=== PATIENT | male | born 1935 | race Caucasian/White ===

== ENCOUNTER 2018-10-06 13:30 | Observation (INO) | payer MEDICARE, OTHER | END 2018-10-08 16:46 | disposition home or self-care (01) | LOC: JER 13:30 → JERBED 20:36 → J4W 23:10 ==

== ENCOUNTER 2018-11-26 19:26 | Emergency (ER) | payer MEDICARE, OTHER | END 2018-11-27 00:26 | disposition home or self-care (01) | LOC: JER 11-27 00:26 | PROC: 0T9B70Z Drainage of Bladder with Drainage Device, Via Natural or Artificial Opening (ICD-10-PCS; principal; 2018-11-26) | DX: R33.8 Other retention of urine (principal); Z85.46 Personal history of malignant neoplasm of prostate; I10 Essential (primary) hypertension; E78.00 Pure hypercholesterolemia, unspecified; E11.9 Type 2 diabetes mellitus without complications; Z79.4 Long term (current) use of insulin; Z95.2 Presence of prosthetic heart valve ==

== ENCOUNTER → 2018-12-21 | Day surgery (SDC) | payer MEDICARE, OTHER ==
[~2018-12-21] MED LIST: ACETAMINOPHEN 325 MG TABLET (FP) PO PRN; LACTATED RINGERS SOLUTION 1,000 ML IV SCH; ONDANSETRON 4 MG/2 ML VIAL IVPUSH PRN; PROPOFOL 20 ML ONE; ceFAZolin SODIUM 1 GM VIAL IVPB ONE; hydrALAZINE HCL 20 MG/ML VIAL IVPUSH ONE
[2018-12-21 09:35] VITALS: BMI 24.0
--- NOTE | 2018-12-21 11:25 | HP ---
DATE OF ADMISSION: 12/21/2018 DATE OF DICTATION: 12/21/2018 HISTORY OF PRESENT ILLNESS: An 83-year-old male with history of prostatism. Patient has had recurrent bouts of urinary tract infection requiring a [place] catheter. He does have history of prostate cancer treated with radiation therapy and his last Lupron was in February of 2018. He underwent coronary artery bypass surgery. He does have history of diabetes and high blood pressure as well as gastroesophageal reflux disease. Patient underwent a cystoscopy in the office. He had greater than 700 mL of residual urine. A [place] catheter was placed at the time. Patient is scheduled to undergo a cystoscopy and a TUR of obstructing prostate and bladder neck tissue. His latest PSA is 0.02. He is on multiple medications including iron, Norvasc, simvastatin, lisinopril, metformin, insulin, aspirin, Nexium, and Flomax. He denies any allergies. PLAN: Cystoscopy, TUR bladder neck. Osito [id number]
--- NOTE | 2018-12-21 12:06 | OP ---
Operative Note - Note: Operative Date: 12/21/18 Pre-Operative Diagnosis: bnc, bph Operation: turp/tuvp/turbn Findings: rec. bph and bnc and trabeculated bladder Post-Operative Diagnosis: Same as Pre-op Surgeon: Tricia Sung Anesthesia: General Specimens Removed: prostate tissue and bladder neck tissua Estimated Blood Loss (mls): 10 Drains & Tubes with Location: 24f 10cc martins Drains, Volume Out (mls): 0 Blood Volume Replaced (mls): 0 Fluid Volume Replaced (mls): 0 Operative Report Dictated: Yes
[2018-12-21] MEDS: hydrALAZINE HCL 20 MG/ML VIAL ONE ×2 (12:40→13:00)
[2018-12-21 13:53] VITALS: BP 144/51; PULSE 81; TEMP 97.6
--- NOTE | 2018-12-21 14:13 | OP ---
DATE OF OPERATION: 12/21/2018 PREOPERATIVE DIAGNOSIS: Urinary retention, bladder neck retraction and recurrent benign prostatic hypertrophy. POSTOPERATIVE DIAGNOSIS: Urinary retention, bladder neck retraction and recurrent benign prostatic hypertrophy. Trabeculated bladder. OPERATIVE PROCEDURE: Cystourethroscopy, transurethral resection of excess prostate tissue and transurethral vaporization of bladder neck. ANESTHESIA: General. DESCRIPTION OF PROCEDURE: Under above stated anesthesia, patient was prepped and draped in the usual sterile manner. He was placed in the dorsal lithotomy position. Cystoscopy revealed a normal anterior urethra. Prostatic urethra revealed excess prostate tissue over the right lobe, stented into the bladder neck. Using a bipolar resectoscope, the tissue was resected. Hemostasis was secured with electrocoagulation. Prostate chips were evacuated with an PERORA evacuator. A bladder neck appeared to be contracted, therefore using a plasma button, a bladder neck was vaporized from the 6 o'clock position to the 12 o'clock position on the right side, and same thing on the left side. No active bleeding was noted. The bladder was emptied. Scope was removed. A 24 Upper Sorbian [place] was placed. This was connected to a leg bag. The patient tolerated the procedure well. He returned to the recovery room in good condition. Osito [id number]
--- NOTE | 2018-12-24 17:56 | PATH ---
Surgical Pathology Report Patient Name: THOMAS FRANKLIN [facility]. Rec. #: [id number] /Age/Gender: 1935 (Age: 83) / M Account: [id number] Location: [facility] SURGICAL Taken: 12/21/2018 Received: 12/21/2018 Reported: 12/24/2018 Physicians: Tricia Sung M.D. Specimen(s) Received PROSTATE TISSUE Clinical History Urethral stricture Final Diagnosis PROSTATE TISSUE, TRANSURETHRAL RESECTION OF BLADDER NECK AND PROSTATE: BENIGN PROSTATIC TISSUE WITH MARKED ACUTE AND CHRONIC INFLAMMATION, GRANULATION TISSUE FORMATION, AND STROMAL HYPERPLASIA. UROTHELAL MUCOSA WITH CYSTITIS CYSTICA AND CYSTITIS GLANDULARIS. Electronically Signed Alley Mota M.D. Gross Description Received in formalin labeled "prostate tissue" is a 1 g, 3 x 2 x 0.5 cm aggregate of rivera, firm to rubbery portions of tissue, consistent with prostate chips. Auto Porter portions are submitted in 1 cassette. MLSZ/12/21/2018 sansiobhan/12/21/2018
== END | disposition home or self-care (01) ==
LOC: JASU-SURG 08:56
PROVIDERS: ATTEND Urology
PROC: 0TBC8ZZ Excision of Bladder Neck, Via Natural or Artificial Opening Endoscopic (ICD-10-PCS; principal; 2018-12-21 10:00)
DX: R33.9 Retention of urine, unspecified (principal); N32.0 Bladder-neck obstruction; N40.0 Benign prostatic hyperplasia without lower urinary tract symptoms; I10 Essential (primary) hypertension; E11.9 Type 2 diabetes mellitus without complications; E78.5 Hyperlipidemia, unspecified; I25.10 Atherosclerotic heart disease of native coronary artery without angina pectoris; Z79.84 Long term (current) use of oral hypoglycemic drugs; Z85.46 Personal history of malignant neoplasm of prostate; Z92.3 Personal history of irradiation
CPT/HCPCS: 82962; 88305-TC; 94760

== ENCOUNTER 2019-02-25 06:06 | Day surgery (SDC) | payer MEDICARE, OTHER ==
[2019-02-22 15:17] VITALS: BMI 23.3
[2019-02-25] MEDS ORDERED: ONDANSETRON 4 MG/2 ML VIAL IVPUSH PRN (10:13)
[2019-02-25] MEDS ORDERED: LACTATED RINGERS SOLUTION 1,000 ML IV SCH (10:15)
[2019-02-25] MEDS ORDERED: LIDOCAINE HCL 1%, 10 MG/ML (20ML VIAL) ONE (10:33)
[2019-02-25] MEDS ORDERED: BUPIVACAINE HCL/PF 0.5% (5 MG/ML) 30 ML VIAL IJ ONE (10:33)
[2019-02-25] MEDS ORDERED: PROPOFOL 20 ML ONE (10:52)
[2019-02-25] MEDS ORDERED: LIDOCAINE HCL 1%, 10 MG/ML (20ML VIAL) INF ONE (11:15)
[2019-02-25] MEDS ORDERED: BENZOIN TINCTURE SWABSTICK TP ONE (11:27)
--- NOTE | 2019-02-25 11:48 | OP ---
Operative Note - Note: Operative Date: 02/25/19 Pre-Operative Diagnosis: recurrent urethral stricture and urinary retention Operation: cystoscopy/open suprapubic tube placement Findings: bulbous urethral stricture Post-Operative Diagnosis: Same as Pre-op Surgeon: Gerber Dunham Anesthesia: General Estimated Blood Loss (mls): 5 Drains & Tubes with Location: suprapubic tube
[2019-02-25 12:49] VITALS: TEMP 97.4
[2019-02-25] MEDS ORDERED: ACETAMINOPHEN 325 MG TABLET (FP) ONE (13:35)
[2019-02-25] MEDS ORDERED: ACETAMINOPHEN 325 MG TABLET (FP) PO ONE (13:39)
[2019-02-25 14:27] VITALS: BP 131/49; PULSE 72
--- NOTE | 2019-02-25 17:44 | OP ---
DATE OF OPERATION: 02/25/2019 PREOPERATIVE DIAGNOSIS: Recurrent urethral stricture causing bladder outlet obstruction with urinary retention. POSTOPERATIVE DIAGNOSIS: Recurrent urethral stricture causing bladder outlet obstruction with urinary retention. PROCEDURE: Cystoscopy and open suprapubic tube placement. ATTENDING: Raegan Juan MD ANESTHESIA: General. DESCRIPTION OF PROCEDURE: Patient was brought in the operating room, placed in a supine position on the operating room table. General anesthesia and preoperative antibiotics were then administered. Cystoscopy was performed and showed a high-grade, bulbous urethral stricture. At this point, a 14-Jordanian catheter was placed into the bladder. The bladder was inflated with 400 mL of fluid. With the bladder palpable, incision was made in the midline 2 cm above the pubic bone. The incision was taken down to the level of the external sheath. An incision was made at the external sheath, and with the blunt and sharp dissection, the bladder was noted. Under direct visualization, incision was made into the bladder and a suprapubic tube placed. The suprapubic tube was then sutured in place with a 0 silk stitch. A 2-layer closure of the skin was performed. There were no complications noted. Patient tolerated the procedure very well. Catheter in the penis was removed at the end of the case. DISPOSITION: To the recovery room. RAEGAN JUAN M.D. [id number]
== END 2019-02-25 14:25 | disposition home or self-care (01) ==
LOC: JASU-SURG 06:06
PROVIDERS: ATTEND Urology
PROC: 0TJB8ZZ Inspection of Bladder, Via Natural or Artificial Opening Endoscopic (ICD-10-PCS; 2019-02-25)
PROC: 0T9B0ZZ Drainage of Bladder, Open Approach (ICD-10-PCS; principal; 2019-02-25 08:00)
DX: N35.819 Other urethral stricture, male, unspecified site (principal); R33.8 Other retention of urine
CPT/HCPCS: 82962; 94760

== ENCOUNTER 2019-10-05 14:01 | Emergency (ER) | payer MEDICARE, OTHER ==
[2019-10-05 14:09] VITALS: TEMP 98.4; BMI 24.3
[2019-10-05 15:28] LABS: BASO % 1.2 % (0-2.0); EOS % 1.5 % (0-4.5); HEMATOCRIT 37.2 % (35.4-49); HEMOGLOBIN 12.6 GM/dL (11.7-16.9); LYMPH % 20.3 % (8-40); MCH 29.8 pg (25.7-33.7); MCHC 33.8 g/dl (32.0-35.9); MEAN CELL VOLUME 88.1 fl (80-96); MEAN PLT VOLUME 8.1 fl (7.5-11.1); PLATELET COUNT 265 K/MM3 (134-434); RBC 4.23 M/mm3 (4.00-5.60); RDW 14.4 % (11.9-15.9); WHITE BLOOD COUNT 8.3 K/mm3 (4.0-10.0)
[2019-10-05 15:36] LABS: INR 0.97 (0.83-1.09); PROTHROMBIN TIME (PATIENT) 11.5 SEC (9.7-13.0)
[2019-10-05 15:38] LABS: ACTIVATED PTT 34.6 SECONDS (25.2-36.5)
[2019-10-05 15:43] LABS: EPI CELLS 4 /uL (0-25.1); HYALINE CASTS 2 /uL (0-3.1); URINE APPEARANCE CLOUDY; URINE BILIRUBIN NEGATIVE (NEGATIVE); URINE COLOR YELLOW; URINE GLUCOSE (UA) 3+ (NEGATIVE); URINE KETONE NEGATIVE (NEGATIVE); URINE LEUK ESTERASE 1+ (NEGATIVE); URINE NITRITE POSITIVE (NEGATIVE); URINE PROTEIN 2+ (NEGATIVE); URINE RBC 11 /uL (0-23.9); URINE UROBILINOGEN 0.2 mg/dL (0.2-1.0); URINE WBC 186 /uL (0-25.8)
--- NOTE | 2019-10-05 15:44 | PDOC ---
History of Present Illness - General Chief Complaint: Blood Pressure Problem Stated Complaint: HYPERTENSION Time Seen by Provider: 10/05/19 14:48 - History of Present Illness Initial Comments: The pt is an 84M w/ a history of Prostate Ca s/p TURP, DM, HTN who presents for evaluation of HTN and headache. The pt reports that his pressures have been running higher at home ranging from SBP 160s-180s. Today the pt reports having a generalized, gradual onset CONWAY with an associated SBP 190s. Pt denies fevers/chills, vision changes, chest pain, trouble breathing, abdominal pain, diarrhea, blood in his urine/stool. The pt has had several changes to his BP meds over the last several months and has been compliant with his current medications. 10/05/19 15:45 Past History - Medical History Allergies/Adverse Reactions: Allergies Allergy/AdvReac Type Severity Reaction Status Date / Time No Known Allergies Allergy Unverified 10/05/19 14:04 Home Medications: Ambulatory Orders Amlodipine Besylate [Norvasc -] 10 mg PO DAILY 10/06/18 Ferrous Sulfate 325 mg PO ONCE 10/06/18 Insulin Glargine,Hum.rec.anlog [Lantus] 30 unit SQ HS 10/06/18 Lisinopril 40 mg PO DAILY 10/06/18 Simvastatin 20 mg PO DAILY 10/06/18 metFORMIN HCL [Metformin HCl] 500 mg PO BID 10/06/18 Aspirin [Aspirin EC] 81 mg PO DAILY 10/07/18 Omeprazole/Sodium Bicarbonate [Omeprazole-Bicarb 40-1,100 Cap] 1 tab PO HS 10/07/18 Finasteride 5 mg PO DAILY 10/05/19 Hydrochlorothiazide [Hctz -] 25 mg PO DAILY 10/05/19 Anemia: No Asthma: No Cancer: Yes (h/o Prostate Ca) Cardiac Disorders: Yes (AVR) CVA: No COPD: No CHF: No Dementia: No Diabetes: Yes GI Disorders: Yes (STOMACH POLYPS) Disorders: No HTN: Yes Hypercholesterolemia: Yes Liver Disease: Yes (stomach polyps) Seizures: No Thyroid Disease: No - Surgical History Abdominal Surgery: No Cardiac Surgery: Yes (Heart valve Replacement 11 years ago) Lung Surgery: No Neurologic Surgery: No - Psycho-Social/Smoking History Smoking History: Never smoked Have you smoked in the past 12 months: No - Substance Abuse Hx (Audit-C & DAST Scrn) How often the patient has a drink containing alcohol: Never Score: In Men: 4 or > Positive; In Women: 3 or > Positive: 0 Screen Result (Pos requires Nsg. Audit-10AR): Negative In the last yr the pt used illegal drug/Rx for NonMed reason: No Score: Yes response is considered Positive: 0 Screen Result (Positive result requires Nsg. DAST-10): Negative Review of Systems - Review of Systems Able to Perform ROS?: Yes Comments:: GENERAL/CONSTITUTIONAL: No fever or chills. HEAD, EYES, EARS, NOSE AND THROAT: No change in vision. No change in hearing. No sore throat CARDIOVASCULAR: No chest pain or shortness of breath RESPIRATORY: Denies cough, hemoptysis GASTROINTESTINAL: No nausea, vomiting, diarrhea or constipation GENITOURINARY: Suprapubic catheter in place MUSCULOSKELETAL: No joint or muscle swelling or pain. No neck or back pain SKIN: No rash NEUROLOGIC: No vertigo, loss of consciousness, or change in strength/sensation ENDOCRINE: No increased thirst. No abnormal weight change HEMATOLOGIC/LYMPHATIC: No anemia, easy bleeding, or history of blood clots ALLERGIC/IMMUNOLOGIC: No hives or skin allergy 10/05/19 15:42 Is the patient limited Par[place] proficient: No *Physical Exam - Vital Signs Last Vital Signs Temp Pulse Resp BP Pulse Ox 98.4 F 75 18 184/46 H 97 10/05/19 14:04 10/05/19 14:04 10/05/19 14:04 10/05/19 14:04 10/05/19 14:04 - Physical Exam GENERAL: Awake, alert, and oriented to person/place/time, in no acute distress HEAD: No signs of trauma, normocephalic, atraumatic EYES: PERRLA, EOMI, sclera anicteric, conjunctiva clear ENT: Hearing grossly normal, nares patent, oropharynx clear without exudates. Moist mucosa LUNGS: No distress, speaks in full sentences, clear to auscultation bilaterally HEART: Regular rate and rhythm, normal S1 and S2, no murmurs appreciated, peripheral pulses normal and equal bilaterally ABDOMEN: Soft, nontender, suprapubic catheter in place w/o surrounding erythema, normoactive bowel sounds. No guarding, no rebound EXTREMITIES: Normal inspection, Normal range of motion, no edema. No clubbing or cyanosis NEUROLOGICAL: Cranial nerves II through XII grossly intact. Normal speech, no focal sensorimotor deficits SKIN: Warm, Dry 10/05/19 15:43 ED Treatment Course - LABORATORY CBC & Chemistry Diagram: 10/05/19 15:18 10/05/19 15:18 - ADDITIONAL ORDERS Additional order review: Laboratory Results 10/05/19 15:18 PT with INR 11.50 INR 0.97 PTT (Actin FS) 34.6 10/05/19 15:18 RBC 4.23 MCV 88.1 MCHC 33.8 RDW 14.4 MPV 8.1 Neutrophils % 69.0 Lymphocytes % 20.3 D Monocytes % 8.0 Eosinophils % 1.5 Basophils % 1.2 Medical Decision Making - Medical Decision Making The pt is an 84M w/ a history of Prostate Ca s/p TURP, DM, HTN who presents for evaluation of HTN (SBP 190 at home) and a generalized, gradual onset headache Ddx: HTN, hypertensive emergency; CONWAY (tension, migraine, hypertensive); not likely ACS; pt w/o respiratory or infectious symptoms. ED Course CMP, CBC, Trop I, UA, UCx CT head, CXR ECG No leukocytosis No anemia Lytes overall unremarkable No MIGNON LFTs unremarkable Trop I neg UA likely colonized from suprapubic catheter 10/05/19 15:54 Pt states CONWAY is resolved and is asymptomatic Repeat BP 160s/30s CT head w/o acute pathology CXR w/o PNA, PNX, effusion ECG w/ sinus arrhythmia, incomplete RBBB, right axis deviation; no acute ischemic changes; HR 60; QTc 426 Plan for D/C w/ PCP f/u Call placed to Dr. Sung, message left for return call Pt instructed to call PCP office Monday to discuss his BP regimen and try to move his appointment up. Discharge instructions and return precautions given Patient in agreement and verbalized understanding Dispo: Home 10/05/19 16:58 Discharge - Discharge Information Problems reviewed: Yes Clinical Impression/Diagnosis: Hypertension Qualifiers: Hypertension type: essential hypertension Qualified Code(s): I10 - Essential (primary) hypertension Headache Qualifiers: Headache type: unspecified Headache chronicity pattern: acute headache Intractability: not intractable Qualified Code(s): R51 - Headache Condition: Stable Disposition: HOME - Admission No - Follow up/Referral Referrals: Mack Sung MD [Primary Care Provider] - - Patient Discharge Instructions Patient Printed Discharge Instructions: DI for High Blood Pressure Additional Instructions: You were seen in the Emergency Department for evaluation of high blood pressure. Your blood pressure here was within an acceptable range. Your labs and imaging were unremarkable. Review the handouts provided at discharge. Call your doctor's office on Monday to try and schedule an earlier appointment or try to discuss your medications with the doctor. Tell them that you were seen in the Emergency Department for this problem this weekend. Return to the Emergency Department if you develop fevers, chest pain, trouble breathing, vision changes, changes in sensation/strength, headache, nausea/vomi ting, worsening symptoms, or any new/concerning symptoms. Lo vieron en el departamento de emergencias para evaluar la presin arterial shantell. Plasencia presin arterial aqu estaba dentro de un rango aceptable. [place] laboratorios e imgenes no fueron notables. Revise los folletos provistos al shantell. Llame al consultorio de plasencia mdico el para tratar de programar donna antony ms temprana o tratar de discutir [place] medicamentos con el mdico. Dgales que lo vieron en el Departamento de Emergencias por marcelo problema marcelo fin de semana. Regrese al Departamento de Emergencias si desarrolla fiebre, dolor en el pecho, dificultad para respirar, cambios en la visin, cambios en la sensacin / fuerza, dolor de taj, nuseas / vmitos, empeoramiento de los sntomas o cualquier sntoma nuevo o preocupante. Print Language: AFGHAN - Post Discharge Activity
[2019-10-05 15:52] LABS: ALBUMIN 3.3 g/dl (3.4-5.0); ALK PHOS 101 U/L (45-117); ANION GAP 7 MMOL/L (8-16); BILIRUBIN,TOTAL 0.4 mg/dL (0.2-1); BLOOD UREA NITROGEN 20.8 mg/dL (7-18); CALCIUM 8.7 mg/dL (8.5-10.1); CHLORIDE 100 mmol/L (98-107); CO2 26 mmol/L (21-32); CREATININE 1.1 mg/dL (0.55-1.3); GLUCOSE,RANDOM 273 mg/dL (74-106); MAGNESIUM 2.3 mg/dL (1.8-2.4); POTASSIUM 4.6 mmol/L (3.5-5.1); SGOT/AST 25 U/L (15-37); SGPT/ALT 15 U/L (13-61); SODIUM 133 mmol/L (136-145); TOT PROT 7.6 g/dl (6.4-8.2)
--- NOTE | 2019-10-05 16:15 | PDOC ---
Documentation entered by Mallika Ponce SCRIBE, acting as scribe for Tali Shook MD. Tali Shook MD: This documentation has been prepared by the Kris augustine Xhesika, SCRIBE, under my direction and personally reviewed by me in its entirety. I confirm that the documentation accurately reflects all work, treatment, procedures, and medical decision making performed by me. 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 Pt states his BP has been in the 160's systolic for the past serval weeks, tried to get an appointment with Dr. Sung, was unable to until a month from now. Pt was taken off of hydrochlorothiazide last year and it was re-substituted again 2 months ago. Pt states his BP was 190 systolic today associated with a headache, prompting his arrival to the ED. Allergies: NKDA PCP: Dr. Mack Sung Cards: Elle Marmolejo Neph: Dr. Manrique - Physicial Exam PE: 10/05/19 16:12 awake alert lungs clear bilat heart systolic murmur , 2/6, no r/g abd soft nt nd ext wwp. Nuero: strength all four ext CN II - XiI intact. skin warm and dry. - Medical Decision Making 10/05/19 16:13 84 yo male with htn, now CONWAY. plan repeat bp 160/30. ct head r/o ICH or other pathology, ro end organ damage cbc cmp bnp trop ekg. will likely dc if al normal. will attempt to call dr Sung or close followup. 10/05/19 17:21 pt bp much improved. ct head negative. labs normal. ekg normal. d/w pt will follow up with dr Sung. called dr sung . left message. Heart Score/ECG Review #1 General ECG Interpretation: Sinus Rhythm, Normal Rate (60), Normal Intervals, No acute ischemic changes Discharge - Discharge Information Problems reviewed: Yes Clinical Impression/Diagnosis: Hypertension Qualifiers: Hypertension type: essential hypertension Qualified Code(s): I10 - Essential (primary) hypertension Headache Qualifiers: Headache type: unspecified Headache chronicity pattern: acute headache Intractability: not intractable Qualified Code(s): R51 - Headache Condition: Stable Disposition: HOME - Admission No - Follow up/Referral Referrals: Mack Sung MD [Primary Care Provider] - - Patient Discharge Instructions Patient Printed Discharge Instructions: DI for High Blood Pressure Additional Instructions: You were seen in the Emergency Department for evaluation of high blood pressure. Your blood pressure here was within an acceptable range. Your labs and imaging were unremarkable. Review the handouts provided at discharge. Call your doctor's office on Monday to try and schedule an earlier appointment or try to discuss your medications with the doctor. Tell them that you were seen in the Emergency Department for this problem this weekend. Return to the Emergency Department if you develop fevers, chest pain, trouble breathing, vision changes, changes in sensation/strength, headache, nausea/vomiting, worsening symptoms, or any new/concerning symptoms. Lo vieron en el departamento de emergencias para evaluar la presin arterial shantell. Porter presin arterial aqu estaba dentro de un rango aceptable. [place] laboratorios e imgenes no fueron notables. Revise los folletos provistos al shantell. Llame al consultorio de porter mdico el para tratar de programar donna antony ms temprana o tratar de discutir [place] medicamentos con el mdico. Dgales que lo vieron en el Departamento de Emergencias por marcelo problema marcelo fin de semana. Regrese al Departamento de Emergencias si desarrolla fiebre, dolor en el pecho, dificultad para respirar, cambios en la visin, cambios en la sensacin / fuerza, dolor de taj, nuseas / vmitos, empeoramiento de los sntomas o cualquier sntoma nuevo o preocupante. Print Language: MAORI - Post Discharge Activity
[2019-10-05 16:31] VITALS: BP 160/43
[2019-10-05 16:41] VITALS: PULSE 60
--- NOTE | 2019-10-06 17:25 | EKG ---
Test Reason : Blood Pressure : / mmHG Vent. Rate : 060 BPM Atrial Rate : 060 BPM P-R Int : 218 ms QRS Dur : 114 ms QT Int : 426 ms P-R-T Axes : 034 -19 045 degrees QTc Int : 426 ms SINUS RHYTHM WITH MARKED SINUS ARRHYTHMIA WITH 1ST DEGREE A-V BLOCK INCOMPLETE RIGHT BUNDLE BRANCH BLOCK BORDERLINE ECG WHEN COMPARED WITH ECG OF 07-OCT-2018 01:46, PREMATURE VENTRICULAR COMPLEXES ARE NO LONGER PRESENT Confirmed by MD Antolin, Gaurav ([id number]) on 10/06/2019 5:25:42 PM Referred By: Confirmed By:Gaurav Dangelo MD
== END 2019-10-05 17:25 | disposition home or self-care (01) ==
LOC: JER 14:01
DX: R51 Headache (principal); I10 Essential (primary) hypertension
CPT/HCPCS: 36415; 70450-TC; 71046-TC-FY; 80053; 81003; 82550; 83735; 84484; 85025; 85610; 85730; 93005; 93010; 99285-25

== ENCOUNTER 2020-01-27 11:19 | Emergency (ER) | payer MEDICARE, OTHER ==
[2020-01-27 12:06] VITALS: BP 188/48; PULSE 66; TEMP 98.6; BMI 26.6
== END 2020-01-27 15:40 | disposition left against medical advice (07) ==
LOC: JER 11:19
DX: R31.9 Hematuria, unspecified (principal)
CPT/HCPCS: 99284-25

== ENCOUNTER 2020-09-04 14:15 | Inpatient (IN) | payer MEDICARE, OTHER ==
[2020-09-04 15:48] LABS: BASO % 1.1 % (0-2.0); EOS % 2.5 % (0-4.5); HEMATOCRIT 30.9 % (35.4-49); HEMOGLOBIN 10.4 GM/dL (11.7-16.9); MCH 28.9 pg (25.7-33.7); MCHC 33.6 g/dl (32.0-35.9); MEAN CELL VOLUME 86.2 fl (80-96); MEAN PLT VOLUME 7.8 fl (7.5-11.1); MONO % 9.3 % (3.8-10.2); NEUT % 64.1 % (42.8-82.8); PLATELET COUNT 270 10^3/uL (134-434); RBC 3.58 M/mm3 (4.00-5.60); WHITE BLOOD COUNT 6.9 K/mm3 (4.0-10.0)
[2020-09-04 16:06] LABS: CHLORIDE 104 mmol/L (98-107); SODIUM 136 mmol/L (136-145)
[2020-09-04 16:08] LABS: CALCIUM 8.6 mg/dL (8.5-10.1)
[2020-09-04 16:09] LABS: ALBUMIN 2.9 g/dl (3.4-5.0); ANION GAP 5 MMOL/L (8-16); BLOOD UREA NITROGEN 20.4 mg/dL (7-18); CO2 26 mmol/L (21-32); GLUCOSE,RANDOM 112 mg/dL (74-106); MAGNESIUM 2.2 mg/dL (1.8-2.4)
[2020-09-04 16:13] LABS: SGOT/AST 14 U/L (15-37); SGPT/ALT 18 U/L (13-61)
[2020-09-04 16:14] LABS: BILIRUBIN,TOTAL 0.4 mg/dL (0.2-1); TOT PROT 6.5 g/dl (6.4-8.2)
[2020-09-04 16:15] LABS: ALK PHOS 88 U/L (45-117)
[2020-09-04 16:18] LABS: N-TERMINAL BNP 5409.7 pg/ml (5-450)
[2020-09-04] MEDS ORDERED: amLODIPine BESYLATE 5 MG TABLET (FP) PO ONE (16:21)
[2020-09-04] MEDS ORDERED: LISINOPRIL 20 MG TABLET PO ONE (16:21)
[2020-09-04] MEDS ORDERED: hydrALAZINE HCL 25 MG TABLET (FP) PO ONE (16:21)
[2020-09-04] MEDS ORDERED: LISINOPRIL 20 MG TABLET ONE (16:24)
[2020-09-04] MEDS ORDERED: amLODIPine BESYLATE 5 MG TABLET (FP) ONE (16:24)
[2020-09-04] MEDS ORDERED: hydrALAZINE HCL 25 MG TABLET (FP) ONE ×2 (16:24→22:00)
[2020-09-04] MEDS ORDERED: CARVEDILOL 12.5 MG TABLET (FP) PO ONE (20:00)
[2020-09-04] MEDS ORDERED: FUROSEMIDE 40 MG/4 ML INJECTABLE VIAL IVPUSH ONE (20:01)
[2020-09-04] MEDS ORDERED: FUROSEMIDE 40 MG/4 ML INJECTABLE VIAL ONE (20:19)
[2020-09-04] MEDS: FUROSEMIDE 40 MG/4 ML INJECTABLE VIAL IVPUSH SCH (20:27)
[2020-09-04 21:06] LABS: EPI CELLS >36 /uL (0-25.1); HYALINE CASTS 2 /uL (0-3.1); URINE APPEARANCE CLEAR; URINE BACTERIA >9,000 /uL (0-1359); URINE BILIRUBIN NEGATIVE (NEGATIVE); URINE COLOR YELLOW; URINE GLUCOSE (UA) NEGATIVE (NEGATIVE); URINE KETONE NEGATIVE (NEGATIVE); URINE LEUK ESTERASE 1+ (NEGATIVE); URINE NITRITE NEGATIVE (NEGATIVE); URINE PROTEIN 3+ (NEGATIVE); URINE RBC 9 /uL (0-23.9); URINE UROBILINOGEN 0.2 mg/dL (0.2-1.0); URINE WBC 76 /uL (0-25.8)
[2020-09-04] MEDS ORDERED: CARVEDILOL 12.5 MG TABLET (FP) ONE (21:27)
[2020-09-04] MEDS ORDERED: ATORVASTATIN CA 10 MG TABLET (FP) ONE (22:01)
[2020-09-04] MEDS: hydrALAZINE HCL 25 MG TABLET (FP) PO SCH (22:06)
[2020-09-04] MEDS: INSULIN SLIDING SCALE (NOVOLOG) 1 VIAL SQ SCH (22:06)
[2020-09-04] MEDS: ATORVASTATIN CA 10 MG TABLET (FP) PO SCH (22:06)
[2020-09-05] MEDS: CARVEDILOL 12.5 MG TABLET (FP) PO SCH ×3 (04:36→22:58)
[2020-09-05 07:11] LABS: HEMATOCRIT 31.3 % (35.4-49); HEMOGLOBIN 10.4 GM/dL (11.7-16.9); MCH 28.6 pg (25.7-33.7); MCHC 33.2 g/dl (32.0-35.9); MEAN CELL VOLUME 86.3 fl (80-96); MEAN PLT VOLUME 8.2 fl (7.5-11.1); PLATELET COUNT 264 10^3/uL (134-434); RBC 3.63 M/mm3 (4.00-5.60); RDW 14.7 % (11.9-15.9); WHITE BLOOD COUNT 6.5 K/mm3 (4.0-10.0)
[2020-09-05 07:25] LABS: ALBUMIN 2.7 g/dl (3.4-5.0); BLOOD UREA NITROGEN 21.2 mg/dL (7-18); CALCIUM 8.6 mg/dL (8.5-10.1)
[2020-09-05 07:26] LABS: MAGNESIUM 1.9 mg/dL (1.8-2.4)
[2020-09-05 07:29] LABS: CREATININE 0.9 mg/dL (0.55-1.3)
[2020-09-05 07:30] LABS: BILIRUBIN,TOTAL 0.5 mg/dL (0.2-1); TOT PROT 6.1 g/dl (6.4-8.2)
[2020-09-05] MEDS: INSULIN SLIDING SCALE (NOVOLOG) 1 VIAL SQ SCH ×4 (08:01→21:18)
[2020-09-05] MEDS ORDERED: DEXTROSE 5%-WATER - 50 ML IVPB ONE (09:33)
[2020-09-05] MEDS ORDERED: cefTRIAXone SODIUM 1 GM VIAL ONE (09:33)
[2020-09-05] MEDS: CEFTRIAXONE 1 GM in DEXTROSE 5%-WATER - 50 ML IVPB SCH (09:39)
[2020-09-05] MEDS: FUROSEMIDE 40 MG/4 ML INJECTABLE VIAL IVPUSH SCH (09:39)
[2020-09-05] MEDS: ENOXAPARIN NA (PORCINE) 40 MG/0.4 ML DISP.SYRIN SQ SCH (09:39)
[2020-09-05] MEDS: amLODIPine BESYLATE 10 MG TABLET (FP) PO SCH (09:39)
[2020-09-05] MEDS: FERROUS SO4 325 MG TABLET (FP) PO SCH (09:39)
[2020-09-05] MEDS: ASPIRIN 81 MG CHEWABLE TABLETS PO SCH (09:40)
[2020-09-05] MEDS: LISINOPRIL 20 MG TABLET PO SCH (09:40)
[2020-09-05] MEDS ORDERED: ISOSORBIDE MONONITRATE 30 MG TAB.SR.24H (FP) PO SCH (10:00)
[2020-09-05] MEDS: hydrALAZINE HCL 25 MG TABLET (FP) PO SCH ×2 (14:37→19:47)
[2020-09-05] MEDS ORDERED: PT OWN MED DRAWER 7, Y5N ONE (21:51)
[2020-09-05] MEDS: ATORVASTATIN CA 10 MG TABLET (FP) PO SCH (22:58)
[2020-09-05] MEDS: hydrALAZINE HCL 25 MG TABLET (FP) PO PRN (22:58)
[2020-09-06] MEDS: hydrALAZINE HCL 25 MG TABLET (FP) PO PRN (06:52)
[2020-09-06] MEDS: INSULIN SLIDING SCALE (NOVOLOG) 1 VIAL SQ SCH ×4 (06:52→21:36)
[2020-09-06 07:21] LABS: HEMATOCRIT 32.4 % (35.4-49); HEMOGLOBIN 10.6 GM/dL (11.7-16.9); MCH 28.5 pg (25.7-33.7); MCHC 32.8 g/dl (32.0-35.9); MEAN CELL VOLUME 86.7 fl (80-96); MEAN PLT VOLUME 7.9 fl (7.5-11.1); PLATELET COUNT 274 10^3/uL (134-434); RBC 3.74 M/mm3 (4.00-5.60); RDW 14.9 % (11.9-15.9); WHITE BLOOD COUNT 6.8 K/mm3 (4.0-10.0)
[2020-09-06 07:40] LABS: CALCIUM 8.3 mg/dL (8.5-10.1)
[2020-09-06 07:41] LABS: BLOOD UREA NITROGEN 19.2 mg/dL (7-18); MAGNESIUM 2.1 mg/dL (1.8-2.4)
[2020-09-06 07:44] LABS: CREATININE 1.2 mg/dL (0.55-1.3); PHOSPHOROUS 4.5 mg/dL (2.5-4.9)
[2020-09-06] MEDS: ISOSORBIDE MONONITRATE 60 MG TAB.SR.24H (FP) PO SCH ×2 (08:41→10:33)
[2020-09-06] MEDS: FUROSEMIDE 40 MG/4 ML INJECTABLE VIAL IVPUSH SCH ×2 (08:42→10:33)
[2020-09-06] MEDS ORDERED: PIPERACILLIN/TAZOB 3.375 GM 3.375 GM in DEXTROSE 5%-WATER - 50 ML IVPB SCH (10:00)
[2020-09-06] MEDS ORDERED: cefTRIAXone SODIUM 1 GM VIAL ONE (10:25)
[2020-09-06] MEDS ORDERED: DEXTROSE 5%-WATER - 50 ML IVPB ONE ×2 (10:25→11:10)
[2020-09-06] MEDS: ENOXAPARIN NA (PORCINE) 40 MG/0.4 ML DISP.SYRIN SQ SCH (10:27)
[2020-09-06] MEDS: ASPIRIN 81 MG CHEWABLE TABLETS PO SCH (10:27)
[2020-09-06] MEDS: LISINOPRIL 20 MG TABLET PO SCH (10:27)
[2020-09-06] MEDS: CEFTRIAXONE 1 GM in DEXTROSE 5%-WATER - 50 ML IVPB SCH (10:27)
[2020-09-06] MEDS: FERROUS SO4 325 MG TABLET (FP) PO SCH (10:27)
[2020-09-06] MEDS: CARVEDILOL 25 MG TABLET (FP) PO SCH ×2 (10:27→21:36)
[2020-09-06] MEDS ORDERED: PIPERACILLIN/TAZOBACTAM 3.375 GM VIAL IVPB ONE (11:10)
[2020-09-06] MEDS: PIPERACILLIN/TAZOB 3.375 GM 3.375 GM in DEXTROSE 5%-WATER - 50 ML IVPB SCH ×2 (11:20→11:23)
[2020-09-06] MEDS ORDERED: DEXTROSE 5%-WATER 100 ML IVPB ONE ×2 (12:32→17:16)
[2020-09-06] MEDS ORDERED: MEROPENEM 1 GM VIAL (RESTRICTED TO ID) IVPB ONE ×2 (12:32→17:16)
[2020-09-06] MEDS: MEROPENEM 1 GM in DEXTROSE 5%-WATER 100 ML IVPB SCH ×2 (12:34→17:21)
[2020-09-06] MEDS: amLODIPine BESYLATE 10 MG TABLET (FP) PO SCH (12:56)
[2020-09-06 14:51] VITALS: BMI 21.8
[2020-09-06] MEDS: ATORVASTATIN CA 10 MG TABLET (FP) PO SCH (21:36)
[2020-09-07] MEDS ORDERED: MEROPENEM 1 GM VIAL (RESTRICTED TO ID) IVPB ONE ×3 (01:02→17:23)
[2020-09-07] MEDS ORDERED: DEXTROSE 5%-WATER 100 ML IVPB ONE ×3 (01:03→17:23)
[2020-09-07] MEDS: MEROPENEM 1 GM in DEXTROSE 5%-WATER 100 ML IVPB SCH ×3 (01:05→17:34)
[2020-09-07] MEDS: INSULIN SLIDING SCALE (NOVOLOG) 1 VIAL SQ SCH ×4 (06:09→21:21)
[2020-09-07] MEDS: PATIENT'S OWN MEDICATION (NON-FORMULARY) (Omeprazole/Sodium Bicarbonate [Omeprazole-Bicarb PO SCH (07:43)
[2020-09-07] MEDS ORDERED: FUROSEMIDE 40 MG TABLET (FP) PO SCH (10:00)
[2020-09-07] MEDS: ENOXAPARIN NA (PORCINE) 40 MG/0.4 ML DISP.SYRIN SQ SCH (10:01)
[2020-09-07] MEDS: ASPIRIN 81 MG CHEWABLE TABLETS PO SCH (10:03)
[2020-09-07] MEDS: ISOSORBIDE MONONITRATE 60 MG TAB.SR.24H (FP) PO SCH (10:03)
[2020-09-07] MEDS: amLODIPine BESYLATE 10 MG TABLET (FP) PO SCH (10:03)
[2020-09-07] MEDS: LISINOPRIL 20 MG TABLET PO SCH (10:04)
[2020-09-07] MEDS: CARVEDILOL 25 MG TABLET (FP) PO SCH ×2 (10:04→21:19)
[2020-09-07] MEDS: PANTOPRAZOLE 40 MG TABLET PO SCH (10:04)
[2020-09-07] MEDS: FERROUS SO4 325 MG TABLET (FP) PO SCH (10:04)
[2020-09-07] MEDS ORDERED: ATORVASTATIN CA 40 MG TABLET (FP) PO SCH (22:00)
[2020-09-08] MEDS ORDERED: DEXTROSE 5%-WATER 100 ML IVPB ONE ×3 (00:54→16:43)
[2020-09-08] MEDS ORDERED: MEROPENEM 1 GM VIAL (RESTRICTED TO ID) IVPB ONE ×3 (00:54→16:43)
[2020-09-08] MEDS: MEROPENEM 1 GM in DEXTROSE 5%-WATER 100 ML IVPB SCH ×3 (01:03→17:03)
[2020-09-08] MEDS: INSULIN SLIDING SCALE (NOVOLOG) 1 VIAL SQ SCH ×3 (06:18→17:10)
[2020-09-08 07:36] LABS: BASO % 2.4 % (0-2.0); EOS % 3.8 % (0-4.5); HEMATOCRIT 28.4 % (35.4-49); HEMOGLOBIN 9.5 GM/dL (11.7-16.9); LYMPH % 22.3 % (8-40); MCH 28.9 pg (25.7-33.7); MCHC 33.2 g/dl (32.0-35.9); MEAN CELL VOLUME 87.1 fl (80-96); MEAN PLT VOLUME 8.3 fl (7.5-11.1); MONO % 9.7 % (3.8-10.2); NEUT % 61.8 % (42.8-82.8); PLATELET COUNT 243 10^3/uL (134-434); RBC 3.27 M/mm3 (4.00-5.60); RDW 15.1 % (11.9-15.9); WHITE BLOOD COUNT 6.6 K/mm3 (4.0-10.0)
[2020-09-08 07:56] LABS: ALBUMIN 2.6 g/dl (3.4-5.0); BLOOD UREA NITROGEN 34.8 mg/dL (7-18); CALCIUM 7.9 mg/dL (8.5-10.1); MAGNESIUM 2.3 mg/dL (1.8-2.4)
[2020-09-08 07:59] LABS: CREATININE 1.5 mg/dL (0.55-1.3); PHOSPHOROUS 3.9 mg/dL (2.5-4.9)
[2020-09-08 08:01] LABS: BILIRUBIN,TOTAL 0.7 mg/dL (0.2-1)
[2020-09-08] MEDS ORDERED: FUROSEMIDE 20 MG TABLET (FP) PO SCH (10:00)
[2020-09-08] MEDS ORDERED: PT OWN MED DRAWER 7, Y5N ONE (11:39)
[2020-09-08] MEDS: ISOSORBIDE MONONITRATE 60 MG TAB.SR.24H (FP) PO SCH (11:43)
[2020-09-08] MEDS: FERROUS SO4 325 MG TABLET (FP) PO SCH (11:43)
[2020-09-08] MEDS: ASPIRIN 81 MG CHEWABLE TABLETS PO SCH (11:43)
[2020-09-08] MEDS: CARVEDILOL 25 MG TABLET (FP) PO SCH (11:43)
[2020-09-08] MEDS: PANTOPRAZOLE 40 MG TABLET PO SCH (11:43)
[2020-09-08] MEDS: LISINOPRIL 20 MG TABLET PO SCH (11:43)
[2020-09-08] MEDS: amLODIPine BESYLATE 10 MG TABLET (FP) PO SCH (11:44)
[2020-09-08 12:27] VITALS: PULSE 61
[2020-09-08 16:02] VITALS: BP 144/52; TEMP 99.1
== END 2020-09-08 19:16 | disposition home or self-care (01) | DRG 304 ==
LOC: JER 14:15 → JERBED 19:13 → J4S 09-05 08:46
PROVIDERS: ADMIT Hospitalist; ATTEND Internal Medicine
PROC: 02HV33Z Insertion of Infusion Device into Superior Vena Cava, Percutaneous Approach (ICD-10-PCS; principal; 2020-09-08)
PROC: B518ZZA Fluoroscopy of Superior Vena Cava, Guidance (ICD-10-PCS; 2020-09-08)
DX: I16.0 Hypertensive urgency (principal); I50.33 Acute on chronic diastolic (congestive) heart failure; N39.0 Urinary tract infection, site not specified; N17.9 Acute kidney failure, unspecified; E78.5 Hyperlipidemia, unspecified; Z95.2 Presence of prosthetic heart valve; E11.9 Type 2 diabetes mellitus without complications; Z79.84 Long term (current) use of oral hypoglycemic drugs; N40.0 Benign prostatic hyperplasia without lower urinary tract symptoms; I45.10 Unspecified right bundle-branch block; I11.0 Hypertensive heart disease with heart failure; Z91.14 Patient's other noncompliance with medication regimen; E88.09 Other disorders of plasma-protein metabolism, not elsewhere classified
CPT/HCPCS: 36415; 36569; 70450-TC; 71045-TC-FY; 80048; 80053; 80061; 81003; 82962; 83721; 83735; 83880; 84100; 84439; 84443; 84484; 85025; 85027; 85730; 87086; 87186; 93005; 93010; 93306-TC; 99285-25; C9803; U0003; U0005

== ENCOUNTER 2020-09-09 11:46 | Day surgery (SDC) | payer MEDICARE, OTHER ==
[~2020-09-09 11:46] MED LIST changes: -ACETAMINOPHEN 325 MG TABLET (FP) PO PRN; +ERTAPENEM SODIUM 1 GM in SODIUM CHLORIDE 50 ML IVPB ONE; -LACTATED RINGERS SOLUTION 1,000 ML IV SCH; -ONDANSETRON 4 MG/2 ML VIAL IVPUSH PRN; -PROPOFOL 20 ML ONE; -ceFAZolin SODIUM 1 GM VIAL IVPB ONE; -hydrALAZINE HCL 20 MG/ML VIAL IVPUSH ONE
[2020-09-09 12:40] VITALS: BP 119/77; PULSE 55; TEMP 97.7
== END 2020-09-09 15:17 | disposition home or self-care (01) ==
LOC: JINFUSION 11:46 → J7W 12:03 → JINFUSION 15:17
PROVIDERS: ATTEND Internal Medicine Infectious Disease
DX: N39.0 Urinary tract infection, site not specified (principal); E11.9 Type 2 diabetes mellitus without complications; Z79.4 Long term (current) use of insulin; I10 Essential (primary) hypertension
CPT/HCPCS: 96365

== ENCOUNTER 2020-09-10 12:05 | Day surgery (SDC) | payer MEDICARE, OTHER ==
[2020-09-10] MEDS ORDERED: ERTAPENEM SODIUM 1 GM VIAL ONE (12:10)
[2020-09-10] MEDS ORDERED: SODIUM CHLORIDE 50 ML IVPB ONE (12:11)
[2020-09-10 12:33] VITALS: TEMP 98.2
[2020-09-10 12:50] VITALS: BP 122/41; PULSE 59
== END 2020-09-10 13:49 | disposition home or self-care (01) ==
LOC: J7W 12:05 → JINFUSION 12:05
PROVIDERS: ATTEND Internal Medicine Infectious Disease
DX: N39.0 Urinary tract infection, site not specified (principal); E11.9 Type 2 diabetes mellitus without complications; Z79.4 Long term (current) use of insulin; I10 Essential (primary) hypertension
CPT/HCPCS: 96365

== ENCOUNTER 2020-09-11 12:30 | Day surgery (SDC) | payer MEDICARE, OTHER ==
[2020-09-11] MEDS ORDERED: SODIUM CHLORIDE 50 ML IVPB ONE (12:32)
[2020-09-11] MEDS ORDERED: ERTAPENEM SODIUM 1 GM VIAL ONE (12:32)
[2020-09-11 12:58] VITALS: TEMP 98.3
[2020-09-11 13:13] VITALS: BP 130/54; PULSE 57
== END 2020-09-11 14:24 | disposition home or self-care (01) ==
LOC: JINFUSION 12:30 → J7W 12:31 → JINFUSION 14:24
PROVIDERS: ATTEND Internal Medicine Infectious Disease
DX: N39.0 Urinary tract infection, site not specified (principal); E11.9 Type 2 diabetes mellitus without complications; Z79.4 Long term (current) use of insulin; I10 Essential (primary) hypertension
CPT/HCPCS: 96365

== ENCOUNTER 2020-09-12 12:30 | Day surgery (SDC) | payer MEDICARE, OTHER ==
[2020-09-12] MEDS ORDERED: ERTAPENEM SODIUM 1 GM VIAL ONE (12:43)
[2020-09-12] MEDS ORDERED: SODIUM CHLORIDE 50 ML IVPB ONE (12:43)
[2020-09-12] MEDS ORDERED: ERTAPENEM SODIUM 1 GM in SODIUM CHLORIDE 50 ML IVPB ONE (12:45)
[2020-09-12 14:08] VITALS: BP 123/61; PULSE 63; TEMP 98.5
== END 2020-09-12 14:10 | disposition home or self-care (01) ==
LOC: JINFUSION 12:30 → J7W 12:33 → JINFUSION 14:10
PROVIDERS: ATTEND Internal Medicine Infectious Disease
DX: N39.0 Urinary tract infection, site not specified (principal); E11.9 Type 2 diabetes mellitus without complications; I10 Essential (primary) hypertension; Z79.4 Long term (current) use of insulin
CPT/HCPCS: 96365

== ENCOUNTER 2020-09-13 12:21 | Day surgery (SDC) | payer MEDICARE, OTHER ==
[2020-09-13] MEDS ORDERED: ERTAPENEM SODIUM 1 GM VIAL ONE (12:38)
[2020-09-13] MEDS ORDERED: SODIUM CHLORIDE 50 ML IVPB ONE (12:38)
[2020-09-13 12:49] VITALS: BP 138/45; PULSE 20; TEMP 97.7
[2020-09-13] MEDS ORDERED: ERTAPENEM SODIUM 1 GM in SODIUM CHLORIDE 50 ML IVPB ONE (13:00)
== END 2020-09-13 15:11 | disposition home or self-care (01) ==
LOC: J7W 12:21 → JINFUSION 12:21
PROVIDERS: ATTEND Internal Medicine Infectious Disease
DX: N39.0 Urinary tract infection, site not specified (principal); E11.9 Type 2 diabetes mellitus without complications; I10 Essential (primary) hypertension; Z79.4 Long term (current) use of insulin
CPT/HCPCS: 96365

== ENCOUNTER 2020-09-14 12:09 | Day surgery (SDC) | payer MEDICARE, OTHER ==
[2020-09-14] MEDS ORDERED: SODIUM CHLORIDE 50 ML IVPB ONE (12:27)
[2020-09-14] MEDS ORDERED: ERTAPENEM SODIUM 1 GM VIAL ONE (12:27)
[2020-09-14] MEDS ORDERED: ERTAPENEM SODIUM 1 GM in SODIUM CHLORIDE 50 ML IVPB ONE (12:30)
[2020-09-14 12:43] VITALS: TEMP 97.6
[2020-09-14 13:21] VITALS: BP 144/52; PULSE 56
== END 2020-09-14 13:22 | disposition home or self-care (01) ==
LOC: J7W 12:09 → JINFUSION 12:09
PROVIDERS: ATTEND Internal Medicine Infectious Disease
DX: N39.0 Urinary tract infection, site not specified (principal); E11.9 Type 2 diabetes mellitus without complications; I10 Essential (primary) hypertension; Z79.4 Long term (current) use of insulin
CPT/HCPCS: 96365

== ENCOUNTER 2020-09-15 12:26 | Day surgery (SDC) | payer MEDICARE, OTHER ==
[2020-09-15] MEDS ORDERED: ERTAPENEM SODIUM 1 GM VIAL ONE (12:39)
[2020-09-15] MEDS ORDERED: SODIUM CHLORIDE 50 ML IVPB ONE (12:40)
[2020-09-15 13:47] VITALS: BP 125/55; PULSE 86; TEMP 99.2
== END 2020-09-15 14:05 | disposition home or self-care (01) ==
LOC: JINFUSION 12:26 → J7W 12:27 → JINFUSION 14:05
PROVIDERS: ATTEND Internal Medicine Infectious Disease
DX: N39.0 Urinary tract infection, site not specified (principal); E11.9 Type 2 diabetes mellitus without complications; I10 Essential (primary) hypertension; Z79.4 Long term (current) use of insulin
CPT/HCPCS: 96365

== ENCOUNTER 2020-09-16 11:41 | Day surgery (SDC) | payer MEDICARE, OTHER ==
[2020-09-16] MEDS ORDERED: ERTAPENEM SODIUM 1 GM VIAL ONE (11:55)
[2020-09-16] MEDS ORDERED: SODIUM CHLORIDE 50 ML IVPB ONE (11:55)
[2020-09-16 12:07] VITALS: TEMP 98.5
[2020-09-16 14:32] VITALS: BP 130/56; PULSE 56
== END 2020-09-16 15:09 | disposition home or self-care (01) ==
LOC: JINFUSION 11:41 → J7W 11:41 → JINFUSION 15:09
PROVIDERS: ATTEND Internal Medicine Infectious Disease
DX: N39.0 Urinary tract infection, site not specified (principal); E11.9 Type 2 diabetes mellitus without complications; I10 Essential (primary) hypertension; Z79.4 Long term (current) use of insulin
CPT/HCPCS: 96365

== ENCOUNTER 2020-09-17 12:32 | Day surgery (SDC) | payer MEDICARE, OTHER ==
[2020-09-17] MEDS ORDERED: ERTAPENEM SODIUM 1 GM VIAL ONE (12:43)
[2020-09-17] MEDS ORDERED: SODIUM CHLORIDE 50 ML IVPB ONE (12:44)
[2020-09-17 18:47] VITALS: BP 123/46; PULSE 48; TEMP 98.2
== END 2020-09-17 14:00 | disposition home or self-care (01) ==
LOC: JINFUSION 12:32 → J7W 12:33 → JINFUSION 14:00
PROVIDERS: ATTEND Internal Medicine Infectious Disease
DX: N39.0 Urinary tract infection, site not specified (principal); E11.9 Type 2 diabetes mellitus without complications; I10 Essential (primary) hypertension; Z79.4 Long term (current) use of insulin
CPT/HCPCS: 96365

== ENCOUNTER 2021-01-09 08:07 | Inpatient (IN) | payer MEDICARE, OTHER ==
[2021-01-09] MEDS ORDERED: FUROSEMIDE 40 MG/4 ML INJECTABLE VIAL IVPUSH ONE ×3 (09:09→14:12)
[2021-01-09] MEDS ORDERED: FUROSEMIDE 40 MG/4 ML INJECTABLE VIAL ONE ×4 (09:21→20:05)
[2021-01-09 10:54] LABS: BASO % 1.9 % (0-2.0); EOS % 2.5 % (0-4.5); HEMOGLOBIN 7.2 GM/dL (11.7-16.9); LYMPH % 13.8 % (8-40); MCH 27.3 pg (25.7-33.7); MCHC 34.2 g/dl (32.0-35.9); MEAN CELL VOLUME 79.9 fl (80-96); MEAN PLT VOLUME 7.7 fl (7.5-11.1); MONO % 7.7 % (3.8-10.2); NEUT % 74.1 % (42.8-82.8); PLATELET COUNT 209 10^3/uL (134-434); RBC 2.63 M/mm3 (4.00-5.60); RDW 17.1 % (11.9-15.9); WHITE BLOOD COUNT 6.8 K/mm3 (4.0-10.0)
[2021-01-09 11:00] LABS: CHLORIDE 106 mmol/L (98-107); SODIUM 136 mmol/L (136-145)
[2021-01-09 11:03] LABS: ALBUMIN 3.1 g/dl (3.4-5.0); ANION GAP 9 MMOL/L (8-16); BLOOD UREA NITROGEN 42.6 mg/dL (7-18); CALCIUM 8.5 mg/dL (8.5-10.1); CO2 22 mmol/L (21-32)
[2021-01-09 11:04] LABS: GLUCOSE,RANDOM 157 mg/dL (74-106)
[2021-01-09 11:05] LABS: INR 1.08 (0.83-1.09); PROTHROMBIN TIME (PATIENT) 12.6 SEC (9.7-13.0)
[2021-01-09 11:06] LABS: CREATININE 1.8 mg/dL (0.55-1.3); SGPT/ALT 41 U/L (13-61)
[2021-01-09 11:07] LABS: ACTIVATED PTT 34.2 SECONDS (25.2-36.5); PHOSPHOROUS 3.7 mg/dL (2.5-4.9); SGOT/AST 33 U/L (15-37)
[2021-01-09 11:08] LABS: BILIRUBIN,TOTAL 0.6 mg/dL (0.2-1); TOT PROT 7.3 g/dl (6.4-8.2)
[2021-01-09 11:09] LABS: ALK PHOS 179 U/L (45-117)
[2021-01-09 11:12] LABS: N-TERMINAL BNP 9428.5 pg/ml (5-450)
[2021-01-09 13:42] LABS: URINE APPEARANCE CLEAR; URINE BILIRUBIN NEGATIVE (NEGATIVE); URINE COLOR YELLOW; URINE GLUCOSE (UA) NEGATIVE (NEGATIVE); URINE KETONE NEGATIVE (NEGATIVE); URINE LEUK ESTERASE 1+ (NEGATIVE); URINE NITRITE NEGATIVE (NEGATIVE); URINE PROTEIN 1+ (NEGATIVE); URINE UROBILINOGEN 0.2 mg/dL (0.2-1.0)
[2021-01-09] MEDS: FUROSEMIDE 40 MG/4 ML INJECTABLE VIAL IVPUSH SCH (14:16)
[2021-01-09 14:22] LABS: BILIRUBIN,DIRECT 0.2 mg/dL (0.0-0.2)
[2021-01-09 14:25] LABS: LDH 238 U/L (87-246); RETICULOCYTES 1.31 % (0.5-1.5)
[2021-01-09 14:27] LABS: EPI CELLS 2.5 /uL (0-25.1); URINE BACTERIA 40 /uL (0-1359); URINE RBC 170 /uL (0-23.9); URINE WBC 700 /uL (0-25.8); YEAST MODERATE (NEGATIVE)
[2021-01-09 21:22] LABS: BASO % 2.3 % (0-2.0); EOS % 3.4 % (0-4.5); HEMATOCRIT 24.5 % (35.4-49); HEMOGLOBIN 8.4 GM/dL (11.7-16.9); LYMPH % 17.2 % (8-40); MCH 27.8 pg (25.7-33.7); MCHC 34.1 g/dl (32.0-35.9); MEAN CELL VOLUME 81.3 fl (80-96); MEAN PLT VOLUME 7.2 fl (7.5-11.1); MONO % 10.3 % (3.8-10.2); NEUT % 66.8 % (42.8-82.8); PLATELET COUNT 210 10^3/uL (134-434); RBC 3.01 M/mm3 (4.00-5.60); RDW 16.6 % (11.9-15.9); WHITE BLOOD COUNT 6.4 K/mm3 (4.0-10.0)
[2021-01-09] MEDS ORDERED: CARVEDILOL 12.5 MG TABLET (FP) ONE (21:44)
[2021-01-09] MEDS ORDERED: ATORVASTATIN CA 20 MG TABLET (FP) ONE (21:44)
[2021-01-09] MEDS ORDERED: hydrALAZINE HCL 25 MG TABLET (FP) ONE (21:45)
[2021-01-09] MEDS: CARVEDILOL 12.5 MG TABLET (FP) PO SCH (21:50)
[2021-01-09] MEDS: hydrALAZINE HCL 25 MG TABLET (FP) PO SCH (21:50)
[2021-01-09] MEDS: ATORVASTATIN CA 20 MG TABLET (FP) PO SCH (21:51)
[2021-01-10] MEDS ORDERED: FUROSEMIDE 40 MG/4 ML INJECTABLE VIAL ONE ×2 (06:16→14:11)
[2021-01-10] MEDS ORDERED: LEVOTHYROXINE NA 25 MCG TABLET (FP) ONE (06:16)
[2021-01-10] MEDS ORDERED: hydrALAZINE HCL 25 MG TABLET (FP) ONE ×3 (06:16→22:07)
[2021-01-10] MEDS: FUROSEMIDE 40 MG/4 ML INJECTABLE VIAL IVPUSH SCH ×2 (06:22→14:19)
[2021-01-10] MEDS: hydrALAZINE HCL 25 MG TABLET (FP) PO SCH ×3 (06:22→22:17)
[2021-01-10] MEDS: LEVOTHYROXINE NA 25 MCG TABLET (FP) PO SCH (06:22)
[2021-01-10 07:33] LABS: BASO % 2.4 % (0-2.0); EOS % 5.1 % (0-4.5); HEMATOCRIT 24.4 % (35.4-49); HEMOGLOBIN 8.4 GM/dL (11.7-16.9); LYMPH % 22.3 % (8-40); MCH 27.7 pg (25.7-33.7); MCHC 34.3 g/dl (32.0-35.9); MEAN CELL VOLUME 80.8 fl (80-96); MEAN PLT VOLUME 7.8 fl (7.5-11.1); MONO % 11.6 % (3.8-10.2); NEUT % 58.6 % (42.8-82.8); PLATELET COUNT 214 10^3/uL (134-434); RBC 3.01 M/mm3 (4.00-5.60); RDW 16.4 % (11.9-15.9); WHITE BLOOD COUNT 5.7 K/mm3 (4.0-10.0)
[2021-01-10 07:43] LABS: MAGNESIUM 2.2 mg/dL (1.8-2.4)
[2021-01-10 07:44] LABS: CALCIUM 8.4 mg/dL (8.5-10.1)
[2021-01-10 07:45] LABS: BLOOD UREA NITROGEN 40.6 mg/dL (7-18)
[2021-01-10 07:47] LABS: CREATININE 2.1 mg/dL (0.55-1.3)
[2021-01-10 07:48] LABS: PHOSPHOROUS 3.8 mg/dL (2.5-4.9); TOT PROT 6.9 g/dl (6.4-8.2)
[2021-01-10 07:50] LABS: BILIRUBIN,TOTAL 0.7 mg/dL (0.2-1)
[2021-01-10] MEDS ORDERED: FERROUS SO4 325 MG TABLET (FP) ONE (09:35)
[2021-01-10] MEDS ORDERED: ISOSORBIDE MONONITRATE 60 MG TAB.SR.24H (FP) PO ONE (09:36)
[2021-01-10] MEDS ORDERED: amLODIPine BESYLATE 5 MG TABLET (FP) ONE (09:37)
[2021-01-10] MEDS: CARVEDILOL 12.5 MG TABLET (FP) PO SCH ×2 (10:10→22:17)
[2021-01-10] MEDS: ISOSORBIDE MONONITRATE 60 MG TAB.SR.24H (FP) PO SCH (10:11)
[2021-01-10] MEDS: amLODIPine BESYLATE 10 MG TABLET (FP) PO SCH (10:11)
[2021-01-10] MEDS: FERROUS SO4 325 MG TABLET (FP) PO SCH (10:11)
[2021-01-10] MEDS ORDERED: CARVEDILOL 12.5 MG TABLET (FP) ONE ×2 (10:22→22:07)
[2021-01-10] MEDS ORDERED: ATORVASTATIN CA 20 MG TABLET (FP) ONE (22:07)
[2021-01-10] MEDS: ATORVASTATIN CA 20 MG TABLET (FP) PO SCH (22:17)
[2021-01-11] MEDS ORDERED: POTASSIUM CHLORIDE TABS 20 MEQ TABLET.ER (FP) PO ONE ×3 (00:32→10:27)
[2021-01-11 04:05] LABS: EPI CELLS 35 /uL (0-25.1); HYALINE CASTS 9 /uL (0-3.1); PH,URINE 6.5 (5.0-8.0); URINE APPEARANCE CLEAR; URINE BACTERIA 15 /uL (0-1359); URINE BILIRUBIN NEGATIVE (NEGATIVE); URINE COLOR YELLOW; URINE GLUCOSE (UA) NEGATIVE (NEGATIVE); URINE KETONE NEGATIVE (NEGATIVE); URINE LEUK ESTERASE 1+ (NEGATIVE); URINE NITRITE NEGATIVE (NEGATIVE); URINE PROTEIN 2+ (NEGATIVE); URINE RBC 60 /uL (0-23.9); URINE UROBILINOGEN 0.2 mg/dL (0.2-1.0); URINE WBC 136 /uL (0-25.8)
[2021-01-11 06:48] LABS: YEAST PRESENT (NEGATIVE)
[2021-01-11 06:54] LABS: CALCIUM 8.1 mg/dL (8.5-10.1)
[2021-01-11 06:55] LABS: ALBUMIN 2.7 g/dl (3.4-5.0); BLOOD UREA NITROGEN 43.6 mg/dL (7-18); MAGNESIUM 2.2 mg/dL (1.8-2.4)
[2021-01-11 06:57] LABS: URIC ACID 8.3 mg/dL (2.6-7.2)
[2021-01-11 06:58] LABS: CREATININE 1.9 mg/dL (0.55-1.3)
[2021-01-11 06:59] LABS: BILIRUBIN,TOTAL 0.6 mg/dL (0.2-1)
[2021-01-11 07:00] LABS: TOT PROT 6.4 g/dl (6.4-8.2)
[2021-01-11] MEDS: FUROSEMIDE 40 MG/4 ML INJECTABLE VIAL IVPUSH SCH ×2 (07:02→14:38)
[2021-01-11] MEDS: hydrALAZINE HCL 25 MG TABLET (FP) PO SCH ×3 (07:02→21:53)
[2021-01-11] MEDS: LEVOTHYROXINE NA 25 MCG TABLET (FP) PO SCH (07:02)
[2021-01-11] MEDS ORDERED: PT OWN MED DRAWER 7, Y5N ONE ×2 (09:32→10:44)
[2021-01-11] MEDS: FERROUS SO4 325 MG TABLET (FP) PO SCH (09:33)
[2021-01-11] MEDS: amLODIPine BESYLATE 10 MG TABLET (FP) PO SCH (09:33)
[2021-01-11] MEDS: CARVEDILOL 12.5 MG TABLET (FP) PO SCH ×2 (09:33→21:53)
[2021-01-11] MEDS: ISOSORBIDE MONONITRATE 60 MG TAB.SR.24H (FP) PO SCH (10:47)
[2021-01-11] MEDS ORDERED: DOCUSATE SODIUM 100 MG CAPSULE (FP) PO ONE (17:04)
[2021-01-11] MEDS: INSULIN SLIDING SCALE (NOVOLOG) 1 VIAL SQ SCH ×2 (17:31→21:51)
[2021-01-11] MEDS: ATORVASTATIN CA 20 MG TABLET (FP) PO SCH (21:53)
[2021-01-12] MEDS: hydrALAZINE HCL 25 MG TABLET (FP) PO SCH ×2 (06:40→13:07)
[2021-01-12] MEDS: INSULIN SLIDING SCALE (NOVOLOG) 1 VIAL SQ SCH ×3 (06:40→17:57)
[2021-01-12] MEDS: LEVOTHYROXINE NA 25 MCG TABLET (FP) PO SCH (06:40)
[2021-01-12 06:56] LABS: BASO % 1.4 % (0-2.0); EOS % 7.5 % (0-4.5); HEMATOCRIT 26.6 % (35.4-49); HEMOGLOBIN 9.4 GM/dL (11.7-16.9); LYMPH % 25.6 % (8-40); MCH 28.1 pg (25.7-33.7); MCHC 35.5 g/dl (32.0-35.9); MEAN CELL VOLUME 79.1 fl (80-96); MEAN PLT VOLUME 7.9 fl (7.5-11.1); MONO % 10.6 % (3.8-10.2); NEUT % 54.9 % (42.8-82.8); PLATELET COUNT 236 10^3/uL (134-434); RBC 3.36 M/mm3 (4.00-5.60); RDW 16.4 % (11.9-15.9); WHITE BLOOD COUNT 5.7 K/mm3 (4.0-10.0)
[2021-01-12 07:22] LABS: MAGNESIUM 2.2 mg/dL (1.8-2.4)
[2021-01-12 07:24] LABS: ALBUMIN 2.9 g/dl (3.4-5.0); CALCIUM 8.4 mg/dL (8.5-10.1)
[2021-01-12 07:27] LABS: CREATININE 1.8 mg/dL (0.55-1.3)
[2021-01-12 07:30] LABS: BILIRUBIN,TOTAL 0.7 mg/dL (0.2-1); TOT PROT 7.2 g/dl (6.4-8.2)
[2021-01-12] MEDS ORDERED: FUROSEMIDE 40 MG/4 ML INJECTABLE VIAL IVPUSH SCH (08:00)
[2021-01-12] MEDS ORDERED: POTASSIUM CHLORIDE TABS 20 MEQ TABLET.ER (FP) PO ONE (08:21)
[2021-01-12] MEDS ORDERED: PT OWN MED DRAWER 7, Y5N ONE (08:22)
[2021-01-12] MEDS: FERROUS SO4 325 MG TABLET (FP) PO SCH (09:14)
[2021-01-12] MEDS: ISOSORBIDE MONONITRATE 60 MG TAB.SR.24H (FP) PO SCH (09:14)
[2021-01-12] MEDS: CARVEDILOL 12.5 MG TABLET (FP) PO SCH (09:15)
[2021-01-12] MEDS: amLODIPine BESYLATE 10 MG TABLET (FP) PO SCH (09:15)
[2021-01-12] MEDS ORDERED: POLYETHYLENE GLYCOL (HEALTHYLAX) 3350 17 GM PACKET PO SCH (10:00)
[2021-01-12 15:52] VITALS: BMI 21.1
[2021-01-12 18:01] VITALS: BP 135/57; PULSE 60; TEMP 98
== END 2021-01-12 18:10 | disposition home or self-care (01) | DRG 291 ==
LOC: JER 08:07 → JERBED 11:41 → J2W 01-11 02:58
PROVIDERS: ADMIT Internal Medicine; ATTEND Internal Medicine
PROC: 30233N1 Transfusion of Nonautologous Red Blood Cells into Peripheral Vein, Percutaneous Approach (ICD-10-PCS; principal; 2021-01-09)
DX: I13.0 Hypertensive heart and chronic kidney disease with heart failure and stage 1 through stage 4 chronic kidney disease, or unspecified chronic kidney disease (principal); I50.33 Acute on chronic diastolic (congestive) heart failure; N17.9 Acute kidney failure, unspecified; E78.5 Hyperlipidemia, unspecified; E03.9 Hypothyroidism, unspecified; D64.9 Anemia, unspecified; R07.2 Precordial pain; N40.0 Benign prostatic hyperplasia without lower urinary tract symptoms; E11.22 Type 2 diabetes mellitus with diabetic chronic kidney disease; N18.30 Chronic kidney disease, stage 3 unspecified; E87.70 Fluid overload, unspecified; Z85.46 Personal history of malignant neoplasm of prostate; Z95.2 Presence of prosthetic heart valve; Z91.14 Patient's other noncompliance with medication regimen; Z95.0 Presence of cardiac pacemaker
CPT/HCPCS: 36415; 36430; 71045-TC-FY; 80048; 80053; 80061; 81003; 82248; 82272; 82550; 82570; 82728; 82962; 83010; 83036; 83540; 83550; 83615; 83735; 83880; 84100; 84156; 84300; 84484; 84540; 84550; 85025; 85045; 85610; 85730; 86850; 86900; 86901; 86922; 93005; 93010; 93306-TC; 99285-25; C9803; P9058; U0003; U0005

== ENCOUNTER 2021-07-23 12:08 | Emergency (ER) | payer MEDICARE, OTHER ==
[2021-07-23 12:22] VITALS: BP 101/62; PULSE 63; TEMP 98.6; BMI 22.1
[2021-07-23] MEDS ORDERED: ACETAMINOPHEN INJECTION 100 ML IVPB ONE (13:01)
[2021-07-23] MEDS ORDERED: ACETAMINOPHEN 1000 MG/100 ML BAG IVPB ONE (13:01)
[2021-07-23 13:21] LABS: BASO % 0.9 % (0-2.0); HEMATOCRIT 23.4 % (35.4-49); HEMOGLOBIN 7.9 GM/dL (11.7-16.9); LYMPH % 17.3 % (8-40); MCH 30.6 pg (25.7-33.7); MCHC 33.8 g/dl (32.0-35.9); MEAN CELL VOLUME 90.4 fl (80-96); MEAN PLT VOLUME 8.3 fl (7.5-11.1); MONO % 16.5 % (3.8-10.2); NEUT % 64.3 % (42.8-82.8); PLATELET COUNT 176 10^3/uL (134-434); RBC 2.59 M/mm3 (4.00-5.60); RDW 14.9 % (11.9-15.9); WHITE BLOOD COUNT 5.5 K/mm3 (4.0-10.0)
[2021-07-23 13:39] LABS: BLOOD UREA NITROGEN 45.8 mg/dL (7-18); CALCIUM 8.9 mg/dL (8.5-10.1)
[2021-07-23 13:42] LABS: CREATININE 2.3 mg/dL (0.55-1.3)
[2021-07-23 13:43] LABS: ALBUMIN 3.3 g/dl (3.4-5.0)
[2021-07-23 13:44] LABS: BILIRUBIN,TOTAL 0.8 mg/dL (0.2-1); TOT PROT 7.1 g/dl (6.4-8.2)
[2021-07-23] MEDS ORDERED: LACTATED RINGERS SOLUTION 1000 ML INFUS.BAG IV ONE (15:12)
== END 2021-07-23 18:26 | disposition home or self-care (01) ==
LOC: JER 12:08
PROC: 3E033GC Introduction of Other Therapeutic Substance into Peripheral Vein, Percutaneous Approach (ICD-10-PCS; principal; 2021-07-23)
DX: U07.1 COVID-19 (principal)
CPT/HCPCS: 0241U-QW; 36415; 71045-TC-FY; 80053; 82962; 85025; 96374; 99284-25

== ENCOUNTER 2024-05-03 11:33 | Inpatient (IN) | payer OTHER ==
[2024-05-03 12:45] LABS: VENOUS BASE EXCESS -6.2 mmol/L (-2-2); VENOUS PH 7.35 (7.310-7.410)
[2024-05-03 12:51] LABS: BASO % 1.1 % (0-2.0); EOS % 1.4 % (0-4.5); HEMATOCRIT 14.4 % (35.4-49); LYMPH % 11.4 % (8-40); MCH 28.6 pg (25.7-33.7); MCHC 32.7 g/dl (32.0-35.9); MEAN CELL VOLUME 87.7 fl (80-96); MEAN PLT VOLUME 7.6 fl (7.5-11.1); MONO % 6.1 % (3.8-10.2); PLATELET COUNT 180 10^3/uL (134-434); RBC 1.65 M/mm3 (4.00-5.60); WHITE BLOOD COUNT 6.4 K/mm3 (4.0-10.0)
[2024-05-03 12:52] LABS: INR 1.01 (0.83-1.09)
[2024-05-03 12:53] LABS: HEMOGLOBIN 4.7 GM/dL (11.7-16.9)
[2024-05-03 12:55] LABS: ACTIVATED PTT 30.8 SECONDS (25.2-36.5)
[2024-05-03 13:05] LABS: MAGNESIUM 2.5 mg/dL (1.8-2.4)
[2024-05-03 13:09] LABS: PHOSPHOROUS 3.8 mg/dL (2.5-4.9)
[2024-05-03 13:13] LABS: N-TERMINAL BNP 5214.4 pg/ml (5-450)
[2024-05-03] MEDS ORDERED: INSULIN REGULAR HUMAN 100 UNITS/ML *VIAL ONE (13:28)
[2024-05-03 13:59] LABS: VENOUS BASE EXCESS -6.5 mmol/L (-2-2); VENOUS O2 SATURATION 98.2 % (70-80); VENOUS PCO2 29.4 mmHg (38-52); VENOUS PH 7.4 (7.310-7.410)
[2024-05-03 14:07] LABS: BASO % 0.9 % (0-2.0); EOS % 0.8 % (0-4.5); HEMATOCRIT 13.9 % (35.4-49); LYMPH % 15.3 % (8-40); MCH 29.1 pg (25.7-33.7); MCHC 33.4 g/dl (32.0-35.9); MEAN CELL VOLUME 87.1 fl (80-96); MEAN PLT VOLUME 7.2 fl (7.5-11.1); MONO % 6.8 % (3.8-10.2); NEUT % 76.2 % (42.8-82.8); PLATELET COUNT 175 10^3/uL (134-434); RBC 1.59 M/mm3 (4.00-5.60); RDW 16.2 % (11.9-15.9); WHITE BLOOD COUNT 7.7 K/mm3 (4.0-10.0)
[2024-05-03 14:10] LABS: HEMOGLOBIN 4.6 GM/dL (11.7-16.9)
[2024-05-03 14:19] LABS: POTASSIUM 4.3 mmol/L (3.5-5.1)
[2024-05-03 14:21] LABS: CALCIUM 7.8 mg/dL (8.5-10.1)
[2024-05-03 14:22] LABS: BLOOD UREA NITROGEN 69.2 mg/dL (7-18)
[2024-05-03 14:25] LABS: CREATININE 2.8 mg/dL (0.55-1.3)
[2024-05-03] MEDS: CALCIUM GLUC IN NACL, ISO-OSM 1 GM/50 ML BAG IVPB ONE ×2 (14:25→14:26)
[2024-05-03 14:26] LABS: BILIRUBIN,TOTAL 0.2 mg/dL (0.2-1); TOT PROT 6.1 g/dl (6.4-8.2)
[2024-05-03] MEDS: INSULIN REGULAR HUMAN 100 UNITS/ML *VIAL IVPUSH ONE (14:28)
[2024-05-03] MEDS: INSULIN ASPART SLIDING SCALE (NOVOLOG) 1 VIAL SQ SCH (16:58)
[2024-05-03] MEDS: PANTOPRAZOLE SODIUM 80 MG in SODIUM CHLORIDE 100 ML IVPB SCH (18:09)
[2024-05-03] MEDS ORDERED: FERROUS SO4 325 MG TABLET (FP) ONE (21:03)
[2024-05-03] MEDS ORDERED: hydrALAZINE HCL 10 MG TABLET ONE (21:03)
[2024-05-03] MEDS ORDERED: amLODIPine BESYLATE 5 MG TABLET (FP) ONE (21:03)
[2024-05-03] MEDS ORDERED: CARVEDILOL 25 MG TABLET (FP) ONE (21:03)
[2024-05-03] MEDS: CARVEDILOL 12.5 MG TABLET (FP) PO ONE (21:15)
[2024-05-03] MEDS: amLODIPine BESYLATE 5 MG TABLET (FP) PO ONE (21:16)
[2024-05-03] MEDS: hydrALAZINE HCL 10 MG TABLET PO ONE (21:16)
[2024-05-03] MEDS: FERROUS SO4 325 MG TABLET (FP) PO ONE (21:16)
[2024-05-03] MEDS ORDERED: CARVEDILOL 12.5 MG TABLET (FP) PO SCH (22:00)
[2024-05-03] MEDS ORDERED: CARVEDILOL 25 MG TABLET (FP) PO SCH (22:00)
[2024-05-03] MEDS ORDERED: ATORVASTATIN CA 20 MG TABLET (FP) ONE (22:19)
[2024-05-03] MEDS: ATORVASTATIN CA 20 MG TABLET (FP) PO SCH (22:25)
[2024-05-03] MEDS: FOLIC ACID 5 MG/1 ML SQ ONE (23:03)
[2024-05-04] MEDS: INSULIN (LEVEMIR) 100 UNITS/ML UNITS SQ SCH (00:13)
[2024-05-04 03:09] VITALS: BMI 21.7
[2024-05-04] MEDS: LEVOTHYROXINE NA 50 MCG TABLET (FP) PO SCH (06:18)
[2024-05-04] MEDS ORDERED: SODIUM CHLORIDE 1,000 ML IV SCH (08:45)
[2024-05-04 09:33] LABS: BASO % 1.1 % (0-2.0); EOS % 4.7 % (0-4.5); LYMPH % 20.8 % (8-40); MCH 28.4 pg (25.7-33.7); MCHC 33.8 g/dl (32.0-35.9); MEAN PLT VOLUME 7.2 fl (7.5-11.1); MONO % 10.6 % (3.8-10.2); NEUT % 62.8 % (42.8-82.8); PLATELET COUNT 153 10^3/uL (134-434); RBC 2.26 M/mm3 (4.00-5.60); RDW 18.7 % (11.9-15.9); WHITE BLOOD COUNT 7.4 K/mm3 (4.0-10.0)
[2024-05-04 09:42] LABS: HEMOGLOBIN 6.4 GM/dL (11.7-16.9)
[2024-05-04 09:54] LABS: POTASSIUM 3.9 mmol/L (3.5-5.1)
[2024-05-04 09:57] LABS: CALCIUM 7.5 mg/dL (8.5-10.1)
[2024-05-04 09:58] LABS: BLOOD UREA NITROGEN 64.1 mg/dL (7-18)
[2024-05-04 10:01] LABS: CREATININE 2.6 mg/dL (0.55-1.3)
[2024-05-04 15:46] LABS: HEMOGLOBIN 8.1 GM/dL (11.7-16.9); MCH 28.3 pg (25.7-33.7); MCHC 33.6 g/dl (32.0-35.9); MEAN CELL VOLUME 84.2 fl (80-96); PLATELET COUNT 159 10^3/uL (134-434); RBC 2.86 M/mm3 (4.00-5.60); RDW 17.9 % (11.9-15.9); WHITE BLOOD COUNT 7.4 K/mm3 (4.0-10.0)
[2024-05-05 07:46] LABS: HEMATOCRIT 25.1 % (35.4-49); HEMOGLOBIN 8.3 GM/dL (11.7-16.9); MCH 28.3 pg (25.7-33.7); MCHC 33.2 g/dl (32.0-35.9); MEAN CELL VOLUME 85.2 fl (80-96); MEAN PLT VOLUME 7.4 fl (7.5-11.1); PLATELET COUNT 168 10^3/uL (134-434); RBC 2.95 M/mm3 (4.00-5.60); RDW 17.9 % (11.9-15.9); WHITE BLOOD COUNT 7.9 K/mm3 (4.0-10.0)
[2024-05-05 08:03] LABS: POTASSIUM 3.9 mmol/L (3.5-5.1)
[2024-05-05 08:13] LABS: ALBUMIN 2.9 g/dl (3.4-5.0); BLOOD UREA NITROGEN 46.7 mg/dL (7-18); CREATININE 2.5 mg/dL (0.55-1.3); MAGNESIUM 2.3 mg/dL (1.8-2.4)
[2024-05-05 08:15] LABS: BILIRUBIN,TOTAL 0.6 mg/dL (0.2-1); TOT PROT 5.8 g/dl (6.4-8.2)
[2024-05-05 08:16] LABS: PHOSPHOROUS 3.8 mg/dL (2.5-4.9)
[2024-05-05] MEDS: amLODIPine BESYLATE 10 MG TABLET (FP) PO SCH (18:20)
[2024-05-05 19:12] LABS: EPI CELLS 26 /uL (0-25.1); HYALINE CASTS 1 /uL (0-3.1); PH,URINE 5.5 (5.0-8.0); URINE APPEARANCE TURBID; URINE BACTERIA >9,000 /uL (0-1359); URINE BILIRUBIN NEGATIVE (NEGATIVE); URINE COLOR YELLOW; URINE GLUCOSE (UA) 2+ (NEGATIVE); URINE KETONE NEGATIVE (NEGATIVE); URINE LEUK ESTERASE 3+ (NEGATIVE); URINE NITRITE POSITIVE (NEGATIVE); URINE PROTEIN 1+ (NEGATIVE); URINE UROBILINOGEN 0.2 mg/dL (0.2-1.0); URINE WBC 4096 /uL (0-25.8)
[2024-05-05 19:22] LABS: URINE RBC NONE SEEN /uL (0-23.9); YEAST NONE SEEN (NEGATIVE)
[2024-05-05] MEDS: hydrALAZINE HCL 25 MG TABLET (FP) PO SCH (21:19)
[2024-05-05] MEDS: CARVEDILOL 12.5 MG TABLET (FP) PO SCH (21:19)
[2024-05-06 07:54] LABS: BASO % 1.2 % (0-2.0); EOS % 6.4 % (0-4.5); HEMATOCRIT 26.8 % (35.4-49); HEMOGLOBIN 8.9 GM/dL (11.7-16.9); LYMPH % 17.6 % (8-40); MCH 28.5 pg (25.7-33.7); MCHC 33.3 g/dl (32.0-35.9); MEAN CELL VOLUME 85.7 fl (80-96); MEAN PLT VOLUME 7.4 fl (7.5-11.1); MONO % 10.2 % (3.8-10.2); NEUT % 64.6 % (42.8-82.8); PLATELET COUNT 186 10^3/uL (134-434); RBC 3.13 M/mm3 (4.00-5.60); RDW 18.4 % (11.9-15.9); WHITE BLOOD COUNT 6.9 K/mm3 (4.0-10.0)
[2024-05-06 08:07] LABS: INR 1.01 (0.83-1.09); PROTHROMBIN TIME (PATIENT) 11.1 SEC (9.7-13.0)
[2024-05-06 08:17] LABS: CALCIUM 7.9 mg/dL (8.5-10.1)
[2024-05-06 08:18] LABS: ALBUMIN 2.8 g/dl (3.4-5.0); BLOOD UREA NITROGEN 31.1 mg/dL (7-18)
[2024-05-06 08:21] LABS: CREATININE 2.4 mg/dL (0.55-1.3)
[2024-05-06 08:22] LABS: BILIRUBIN,TOTAL 0.7 mg/dL (0.2-1); TOT PROT 5.8 g/dl (6.4-8.2)
[2024-05-06] MEDS ORDERED: amLODIPine BESYLATE 10 MG TABLET (FP) PO SCH (10:00)
[2024-05-06] MEDS: ISOSORBIDE MONONITRATE 60 MG TAB.SR.24H (FP) PO SCH (11:33)
[2024-05-06] MEDS: PANTOPRAZOLE 40 MG TABLET PO SCH (21:46)
[2024-05-07 08:01] LABS: BASO % 1.2 % (0-2.0); EOS % 5.9 % (0-4.5); HEMATOCRIT 24.3 % (35.4-49); HEMOGLOBIN 7.9 GM/dL (11.7-16.9); LYMPH % 18.5 % (8-40); MCH 28.4 pg (25.7-33.7); MCHC 32.5 g/dl (32.0-35.9); MEAN CELL VOLUME 87.4 fl (80-96); MEAN PLT VOLUME 7.7 fl (7.5-11.1); MONO % 9.1 % (3.8-10.2); NEUT % 65.3 % (42.8-82.8); PLATELET COUNT 174 10^3/uL (134-434); RBC 2.78 M/mm3 (4.00-5.60); RDW 18.3 % (11.9-15.9)
[2024-05-07 08:08] LABS: CALCIUM 7.8 mg/dL (8.5-10.1)
[2024-05-07 08:09] LABS: BLOOD UREA NITROGEN 29.7 mg/dL (7-18)
[2024-05-07 08:12] LABS: CREATININE 2.4 mg/dL (0.55-1.3)
[2024-05-07 15:25] LABS: EPI CELLS 1 /uL (0-25.1); HYALINE CASTS 1 /uL (0-3.1); PH,URINE 5.5 (5.0-8.0); URINE APPEARANCE CLOUDY; URINE BACTERIA 8440 /uL (0-1359); URINE BILIRUBIN NEGATIVE (NEGATIVE); URINE COLOR YELLOW; URINE GLUCOSE (UA) 3+ (NEGATIVE); URINE KETONE NEGATIVE (NEGATIVE); URINE LEUK ESTERASE 1+ (NEGATIVE); URINE NITRITE POSITIVE (NEGATIVE); URINE PROTEIN 2+ (NEGATIVE); URINE RBC 5 /uL (0-23.9); YEAST NONE SEEN (NEGATIVE)
[2024-05-07] MEDS: POLYETHYLENE GLYCOL (HEALTHYLAX) 3350 17 GM PACKET PO SCH (15:42)
[2024-05-07] MEDS ORDERED: PIPERACILLIN/TAZOB 3.375 GM 3.375 GM in DEXTROSE 5%-WATER - 50 ML IVPB SCH (17:00)
[2024-05-07] MEDS: PIPERACILLIN/TAZOB 3.375 GM 50 ML IVPB SCH (18:51)
[2024-05-07 23:08] LABS: HEMOGLOBIN 8.1 GM/dL (11.7-16.9); MCHC 33.7 g/dl (32.0-35.9); MEAN CELL VOLUME 85.9 fl (80-96); MEAN PLT VOLUME 6.9 fl (7.5-11.1); PLATELET COUNT 182 10^3/uL (134-434); WHITE BLOOD COUNT 6.5 K/mm3 (4.0-10.0)
[2024-05-08 07:36] LABS: HEMATOCRIT 23.8 % (35.4-49); HEMOGLOBIN 7.8 GM/dL (11.7-16.9); MCH 28.5 pg (25.7-33.7); MCHC 32.7 g/dl (32.0-35.9); MEAN PLT VOLUME 7.6 fl (7.5-11.1); PLATELET COUNT 186 10^3/uL (134-434); RBC 2.74 M/mm3 (4.00-5.60); RDW 17.9 % (11.9-15.9); WHITE BLOOD COUNT 6.4 K/mm3 (4.0-10.0)
[2024-05-08 08:18] LABS: POTASSIUM 4.1 mmol/L (3.5-5.1)
[2024-05-08 08:35] LABS: CALCIUM 7.7 mg/dL (8.5-10.1)
[2024-05-08 08:36] LABS: ALBUMIN 2.6 g/dl (3.4-5.0)
[2024-05-08 08:38] LABS: PHOSPHOROUS 4.2 mg/dL (2.5-4.9)
[2024-05-08 08:39] LABS: BLOOD UREA NITROGEN 24.3 mg/dL (7-18); MAGNESIUM 2.3 mg/dL (1.8-2.4)
[2024-05-08 08:40] LABS: BILIRUBIN,TOTAL 1.1 mg/dL (0.2-1); TOT PROT 5.6 g/dl (6.4-8.2)
[2024-05-08 08:42] LABS: CREATININE 2.5 mg/dL (0.55-1.3)
[2024-05-08] MEDS: IRON SUCROSE INJECTION 200 MG in SODIUM CHLORIDE 100 ML IVPB ONE (15:46)
[2024-05-09 09:15] LABS: HEMATOCRIT 24.6 % (35.4-49); HEMOGLOBIN 8.3 GM/dL (11.7-16.9); MCH 29.2 pg (25.7-33.7); MCHC 33.6 g/dl (32.0-35.9); PLATELET COUNT 200 10^3/uL (134-434); RBC 2.83 M/mm3 (4.00-5.60); RDW 17.9 % (11.9-15.9); WHITE BLOOD COUNT 5.6 K/mm3 (4.0-10.0)
[2024-05-09 09:29] LABS: POTASSIUM 4.1 mmol/L (3.5-5.1)
[2024-05-09 09:38] LABS: ALBUMIN 2.7 g/dl (3.4-5.0); BLOOD UREA NITROGEN 22.1 mg/dL (7-18); MAGNESIUM 2.3 mg/dL (1.8-2.4); PHOSPHOROUS 3.7 mg/dL (2.5-4.9)
[2024-05-09 09:40] LABS: BILIRUBIN,TOTAL 0.8 mg/dL (0.2-1)
[2024-05-09 09:42] LABS: CREATININE 2.7 mg/dL (0.55-1.3)
[2024-05-09 18:14] VITALS: BP 142/52; PULSE 65; RESP 17; TEMP 97.4
== END 2024-05-09 06:35 | disposition home or self-care (01) | DRG 378 ==
LOC: JER 11:33 → JERBED 14:32 → J4S 05-04 00:09
PROVIDERS: ADMIT Internal Medicine; ATTEND Internal Medicine
PROC: 30233N1 Transfusion of Nonautologous Red Blood Cells into Peripheral Vein, Percutaneous Approach (ICD-10-PCS; principal; 2024-05-03)
PROC: 0DB68ZX Excision of Stomach, Via Natural or Artificial Opening Endoscopic, Diagnostic (ICD-10-PCS; 2024-05-03)
DX: K25.4 Chronic or unspecified gastric ulcer with hemorrhage (principal); D62 Acute posthemorrhagic anemia; I13.0 Hypertensive heart and chronic kidney disease with heart failure and stage 1 through stage 4 chronic kidney disease, or unspecified chronic kidney disease; N18.4 Chronic kidney disease, stage 4 (severe); I50.32 Chronic diastolic (congestive) heart failure; K92.1 Melena; K59.00 Constipation, unspecified; K44.9 Diaphragmatic hernia without obstruction or gangrene; E11.649 Type 2 diabetes mellitus with hypoglycemia without coma; I20.9 Angina pectoris, unspecified; N40.0 Benign prostatic hyperplasia without lower urinary tract symptoms; E03.9 Hypothyroidism, unspecified; E78.5 Hyperlipidemia, unspecified; E11.22 Type 2 diabetes mellitus with diabetic chronic kidney disease; Z95.0 Presence of cardiac pacemaker; Z95.2 Presence of prosthetic heart valve
CPT/HCPCS: 36415; 36430; 71045-TC-FY; 80048; 80053; 80061; 81003; 82272; 82550; 82728; 82803; 82962; 83036; 83540; 83550; 83605; 83735; 83880; 84100; 84439; 84443; 84466; 84484; 85025; 85027; 85610; 85730; 86850; 86900; 86901; 86922; 87040; 87086; 87186; 88305-TC; 88342-TC; 93005; 93010; 93306-TC; 97116-GP; 97161-GP; 99291; J1756; P9058

== ENCOUNTER 2024-06-09 09:03 | Inpatient (IN) | payer OTHER ==
[2024-06-09] MEDS ORDERED: PANTOPRAZOLE SODIUM 40 MG VIAL ONE (10:07)
[2024-06-09] MEDS: PANTOPRAZOLE SODIUM 40 MG VIAL IVPUSH ONE (10:18)
[2024-06-09 10:19] LABS: ABSOLUTE IMMATURE GRANULOCYTES 0.05 x10^3/uL (0.0-0.031); BASOPHILS # 0.06 x10^3/uL (0.01-0.08); EOSINOPHIL % 1.8 % (0.8-7.0); EOSINOPHILS # 0.12 x10^3/uL (0.04-0.54); HEMATOCRIT 18.1 % (40.1-51.0); HEMOGLOBIN 5.8 g/dL (13.7-17.5); MEAN CELL VOLUME 91.4 fl (79.0-92.2); MEAN PLT VOLUME 10.7 fl (9.4-12.4); MONOCYTE # 0.39 x10^3/uL (0.30-0.82); MONOCYTE % 5.8 % (5.3-12.2); PLATELET COUNT 207 x10^3/uL (163-337); RDW 17.2 % (12.6-16.6); VENOUS BASE EXCESS -6.6 mmol/L (-2-2); VENOUS O2 SATURATION 84.9 % (70-80); VENOUS PCO2 36.2 mmHg (38-52); VENOUS PH 7.331 (7.310-7.410)
[2024-06-09 10:34] LABS: ACTIVATED PTT 33.1 SECONDS (25.2-36.5); INR 1.04 (0.83-1.09); PROTHROMBIN TIME (PATIENT) 11.4 SEC (9.7-13.0)
[2024-06-09 10:38] LABS: POTASSIUM 5.2 mmol/L (3.5-5.1)
[2024-06-09 10:40] LABS: ALBUMIN 3.2 g/dl (3.4-5.0); MAGNESIUM 2.7 mg/dL (1.8-2.4)
[2024-06-09 10:43] LABS: CREATININE 2.7 mg/dL (0.55-1.3)
[2024-06-09 10:45] LABS: BILIRUBIN,TOTAL 0.3 mg/dL (0.2-1); TOT PROT 6.8 g/dl (6.4-8.2)
[2024-06-09] MEDS: hydrALAZINE HCL 25 MG TABLET (FP) PO SCH (14:57)
[2024-06-09] MEDS ORDERED: hydrALAZINE HCL 50 MG TABLET (FP) ONE (14:57)
[2024-06-09] MEDS ORDERED: hydrALAZINE HCL 25 MG TABLET (FP) ONE (14:57)
[2024-06-09] MEDS: INSULIN ASPART SLIDING SCALE (NOVOLOG) 1 VIAL SQ SCH (16:53)
[2024-06-09] MEDS: PANTOPRAZOLE 40 MG TABLET PO SCH (23:06)
[2024-06-09 23:42] LABS: HEMATOCRIT 23.6 % (40.1-51.0); HEMOGLOBIN 7.7 g/dL (13.7-17.5); MCHC 32.6 g/dl (32.3-36.5); MEAN CELL VOLUME 87.1 fl (79.0-92.2); MEAN PLT VOLUME 9.8 fl (9.4-12.4); PLATELET COUNT 178 x10^3/uL (163-337); RDW 16.2 % (12.6-16.6)
[2024-06-10 07:02] LABS: HEMATOCRIT 22.5 % (40.1-51.0); HEMOGLOBIN 7.3 g/dL (13.7-17.5); MCHC 32.4 g/dl (32.3-36.5); MEAN CELL VOLUME 87.9 fl (79.0-92.2); MEAN PLT VOLUME 9.8 fl (9.4-12.4); PLATELET COUNT 180 x10^3/uL (163-337)
[2024-06-10] MEDS: LEVOTHYROXINE NA 50 MCG TABLET (FP) PO SCH (07:04)
[2024-06-10 07:20] LABS: POTASSIUM 3.7 mmol/L (3.5-5.1)
[2024-06-10 07:24] LABS: BLOOD UREA NITROGEN 71.1 mg/dL (7-18)
[2024-06-10 07:25] LABS: MAGNESIUM 2.6 mg/dL (1.8-2.4)
[2024-06-10 07:28] LABS: CREATININE 2.3 mg/dL (0.55-1.3); PHOSPHOROUS 3.7 mg/dL (2.5-4.9)
[2024-06-10] MEDS: PANTOPRAZOLE SODIUM 40 MG VIAL IVPUSH SCH (08:31)
[2024-06-10] MEDS: CARVEDILOL 25 MG TABLET (FP) PO SCH (10:24)
[2024-06-10] MEDS: FOLIC ACID 1 MG TABLET (FP) PO SCH (10:25)
[2024-06-10] MEDS: amLODIPine BESYLATE 10 MG TABLET (FP) PO SCH (10:25)
[2024-06-10] MEDS: ISOSORBIDE MONONITRATE 60 MG TAB.SR.24H (FP) PO SCH (10:25)
[2024-06-10] MEDS: PEG 3350/NA SULF BICARB CL/KCL 4000 ML SOLN.RECON PO ONE (12:05)
[2024-06-10] MEDS: PATIENT'S OWN MEDICATION (NON-FORMULARY) (Dapagliflozin Propanediol 10 MG Tablet) PO SCH (14:25)
[2024-06-10 20:30] LABS: HEMATOCRIT 25.5 % (40.1-51.0); HEMOGLOBIN 8.6 g/dL (13.7-17.5); MCHC 33.7 g/dl (32.3-36.5); MEAN CELL VOLUME 86.1 fl (79.0-92.2); MEAN PLT VOLUME 9.6 fl (9.4-12.4); PLATELET COUNT 169 x10^3/uL (163-337); RDW 15.8 % (12.6-16.6)
[2024-06-10] MEDS: ATORVASTATIN CA 20 MG TABLET (FP) PO SCH (22:41)
[2024-06-11 06:56] LABS: HEMATOCRIT 24.9 % (40.1-51.0); HEMOGLOBIN 8.2 g/dL (13.7-17.5); MCHC 32.9 g/dl (32.3-36.5); MEAN CELL VOLUME 87.4 fl (79.0-92.2); MEAN PLT VOLUME 9.8 fl (9.4-12.4); PLATELET COUNT 164 x10^3/uL (163-337); RDW 16.1 % (12.6-16.6)
[2024-06-11 07:13] LABS: POTASSIUM 3.9 mmol/L (3.5-5.1)
[2024-06-11 07:15] LABS: CALCIUM 7.8 mg/dL (8.5-10.1)
[2024-06-11 07:16] LABS: BLOOD UREA NITROGEN 52.3 mg/dL (7-18); MAGNESIUM 2.2 mg/dL (1.8-2.4)
[2024-06-11 07:18] LABS: CREATININE 2.3 mg/dL (0.55-1.3)
[2024-06-11 07:20] LABS: BILIRUBIN,TOTAL 0.6 mg/dL (0.2-1)
[2024-06-11 11:37] VITALS: BMI 21.0
[2024-06-11] MEDS: SODIUM CHLORIDE 1,000 ML IV SCH (12:30)
[2024-06-12 07:54] LABS: HEMATOCRIT 18.4 % (40.1-51.0); MCHC 32.6 g/dl (32.3-36.5); MEAN CELL VOLUME 90.6 fl (79.0-92.2); MEAN PLT VOLUME 9.9 fl (9.4-12.4); PLATELET COUNT 134 x10^3/uL (163-337)
[2024-06-12 08:35] LABS: CALCIUM 7.3 mg/dL (8.5-10.1)
[2024-06-12 08:36] LABS: ALBUMIN 2.6 g/dl (3.4-5.0); BLOOD UREA NITROGEN 44.1 mg/dL (7-18); MAGNESIUM 2.3 mg/dL (1.8-2.4)
[2024-06-12 08:39] LABS: CREATININE 2.2 mg/dL (0.55-1.3); PHOSPHOROUS 3.5 mg/dL (2.5-4.9)
[2024-06-12 08:41] LABS: BILIRUBIN,TOTAL 0.6 mg/dL (0.2-1)
[2024-06-12] MEDS ORDERED: PEG 3350/NA SULF BICARB CL/KCL 4000 ML SOLN.RECON PO ONE (09:30)
[2024-06-12] MEDS: SODIUM CHLORIDE 1,000 ML IV SCH (16:26)
[2024-06-13 01:06] LABS: ABSOLUTE IMMATURE GRANULOCYTES 0.08 x10^3/uL (0.0-0.031); BASOPHILS # 0.05 x10^3/uL (0.01-0.08); EOSINOPHILS # 0.29 x10^3/uL (0.04-0.54); HEMATOCRIT 25.2 % (40.1-51.0); HEMOGLOBIN 8.5 g/dL (13.7-17.5); MCHC 33.7 g/dl (32.3-36.5); MEAN CELL VOLUME 88.1 fl (79.0-92.2); MEAN PLT VOLUME 9.6 fl (9.4-12.4); MONOCYTE # 0.71 x10^3/uL (0.30-0.82); MONOCYTE % 9.7 % (5.3-12.2); PLATELET COUNT 124 x10^3/uL (163-337); RDW 14.6 % (12.6-16.6)
[2024-06-13] MEDS: SODIUM CHLORIDE 1,000 ML IV SCH ×2 (03:23→20:00)
[2024-06-13 06:57] LABS: POTASSIUM 3.8 mmol/L (3.5-5.1)
[2024-06-13 07:04] LABS: ALBUMIN 2.7 g/dl (3.4-5.0); BLOOD UREA NITROGEN 35.1 mg/dL (7-18); CALCIUM 7.6 mg/dL (8.5-10.1)
[2024-06-13 07:07] LABS: BILIRUBIN,TOTAL 0.9 mg/dL (0.2-1); PHOSPHOROUS 3.1 mg/dL (2.5-4.9)
[2024-06-13 07:08] LABS: TOT PROT 5.5 g/dl (6.4-8.2)
[2024-06-13 07:54] LABS: HEMATOCRIT 25.6 % (40.1-51.0); HEMOGLOBIN 8.6 g/dL (13.7-17.5); MCHC 33.6 g/dl (32.3-36.5); MEAN CELL VOLUME 88.6 fl (79.0-92.2); MEAN PLT VOLUME 9.9 fl (9.4-12.4); PLATELET COUNT 127 x10^3/uL (163-337); RDW 15.1 % (12.6-16.6)
[2024-06-13] MEDS ORDERED: SODIUM CHLORIDE 1,000 ML IV SCH (19:45)
[2024-06-13 20:09] LABS: INR 0.99 (0.83-1.09); PROTHROMBIN TIME (PATIENT) 10.9 SEC (9.7-13.0)
[2024-06-13 20:25] LABS: ABSOLUTE IMMATURE GRANULOCYTES 0.06 x10^3/uL (0.0-0.031); BASOPHILS # 0.07 x10^3/uL (0.01-0.08); EOSINOPHIL % 6.2 % (0.8-7.0); EOSINOPHILS # 0.47 x10^3/uL (0.04-0.54); HEMATOCRIT 26.6 % (40.1-51.0); HEMOGLOBIN 8.8 g/dL (13.7-17.5); MCHC 33.1 g/dl (32.3-36.5); MONOCYTE # 0.74 x10^3/uL (0.30-0.82); MONOCYTE % 9.8 % (5.3-12.2); PLATELET COUNT 139 x10^3/uL (163-337); RDW 15.6 % (12.6-16.6)
[2024-06-14 07:55] LABS: HEMATOCRIT 28.6 % (40.1-51.0); HEMOGLOBIN 9.5 g/dL (13.7-17.5); MCHC 33.2 g/dl (32.3-36.5); MEAN CELL VOLUME 89.1 fl (79.0-92.2); MEAN PLT VOLUME 9.8 fl (9.4-12.4); PLATELET COUNT 149 x10^3/uL (163-337); RDW 15.2 % (12.6-16.6)
[2024-06-14 08:16] LABS: BLOOD UREA NITROGEN 30.4 mg/dL (7-18)
[2024-06-14 08:18] LABS: BILIRUBIN,TOTAL 0.8 mg/dL (0.2-1); MAGNESIUM 2.1 mg/dL (1.8-2.4); TOT PROT 6.1 g/dl (6.4-8.2)
[2024-06-14 08:19] LABS: CREATININE 2.3 mg/dL (0.55-1.3)
[2024-06-14 08:20] LABS: PHOSPHOROUS 3.3 mg/dL (2.5-4.9)
[2024-06-14] MEDS ORDERED: SIMETHICONE 80 MG TAB.CHEW (FP) PO PRN (10:43)
[2024-06-14] MEDS: SODIUM CHLORIDE 1,000 ML IV SCH (11:49)
[2024-06-14] MEDS: SIMETHICONE 80 MG TAB.CHEW (FP) PO ONE (12:23)
[2024-06-14] MEDS: IRON SUCROSE INJECTION 200 MG in SODIUM CHLORIDE 100 ML IVPB ONE (14:42)
[2024-06-14 15:36] VITALS: RESP 18
[2024-06-14 15:49] LABS: ABSOLUTE IMMATURE GRANULOCYTES 0.04 x10^3/uL (0.0-0.031); BASOPHILS # 0.05 x10^3/uL (0.01-0.08); EOSINOPHIL % 4.9 % (0.8-7.0); HEMATOCRIT 25.3 % (40.1-51.0); HEMOGLOBIN 8.5 g/dL (13.7-17.5); MCHC 33.6 g/dl (32.3-36.5); MEAN CELL VOLUME 89.7 fl (79.0-92.2); MEAN PLT VOLUME 9.9 fl (9.4-12.4); MONOCYTE % 8.2 % (5.3-12.2); PLATELET COUNT 126 x10^3/uL (163-337); RDW 15.4 % (12.6-16.6)
[2024-06-14] MEDS: INSULIN GLARGINE (LANTUS) 100 UNITS/ML UNITS SQ SCH (22:10)
[2024-06-15 08:55] LABS: HEMATOCRIT 26.6 % (40.1-51.0); HEMOGLOBIN 8.9 g/dL (13.7-17.5); MCHC 33.5 g/dl (32.3-36.5); MEAN CELL VOLUME 90.5 fl (79.0-92.2); MEAN PLT VOLUME 9.5 fl (9.4-12.4); PLATELET COUNT 132 x10^3/uL (163-337); RDW 15.3 % (12.6-16.6)
[2024-06-15 09:27] LABS: POTASSIUM 3.9 mmol/L (3.5-5.1)
[2024-06-15 09:29] LABS: CALCIUM 7.9 mg/dL (8.5-10.1)
[2024-06-15 09:31] LABS: ALBUMIN 2.7 g/dl (3.4-5.0); BLOOD UREA NITROGEN 27.9 mg/dL (7-18); MAGNESIUM 1.9 mg/dL (1.8-2.4)
[2024-06-15 09:34] LABS: BILIRUBIN,TOTAL 0.5 mg/dL (0.2-1); CREATININE 2.3 mg/dL (0.55-1.3); PHOSPHOROUS 3.8 mg/dL (2.5-4.9)
[2024-06-15 09:35] LABS: TOT PROT 5.7 g/dl (6.4-8.2)
[2024-06-15 14:23] VITALS: BP 137/51; PULSE 65; TEMP 97.5
[2024-06-16] MEDS ORDERED: LEVOTHYROXINE NA 100 MCG TABLET (FP) PO SCH (07:00)
== END 2024-06-15 14:53 | disposition home or self-care (01) | DRG 378 ==
LOC: JER 09:03 → JERBED 11:08 → J4S 20:55
PROVIDERS: ATTEND Internal Medicine
PROC: 30233N1 Transfusion of Nonautologous Red Blood Cells into Peripheral Vein, Percutaneous Approach (ICD-10-PCS; 2024-06-09)
PROC: 0DBL8ZX Excision of Transverse Colon, Via Natural or Artificial Opening Endoscopic, Diagnostic (ICD-10-PCS; principal; 2024-06-11 15:00)
DX: K92.2 Gastrointestinal hemorrhage, unspecified (principal); E44.0 Moderate protein-calorie malnutrition; I13.0 Hypertensive heart and chronic kidney disease with heart failure and stage 1 through stage 4 chronic kidney disease, or unspecified chronic kidney disease; I50.32 Chronic diastolic (congestive) heart failure; I24.89 Other forms of acute ischemic heart disease; N18.4 Chronic kidney disease, stage 4 (severe); E03.9 Hypothyroidism, unspecified; E11.22 Type 2 diabetes mellitus with diabetic chronic kidney disease; N18.9 Chronic kidney disease, unspecified; D64.9 Anemia, unspecified; Z68.21 Body mass index [BMI] 21.0-21.9, adult
CPT/HCPCS: 36415; 36430; 71045-TC-FY; 80048; 80053; 82728; 82803; 82962; 83540; 83550; 83605; 83735; 83880; 84100; 84484; 85025; 85027; 85610; 85730; 86850; 86900; 86901; 86922; 93005; 93010; 97116-GP; 97161-GP; 99285-25; J1756; P9038; P9058